=== PATIENT | female | born 2000 | race Caucasian/White ===

== ENCOUNTER 2023-10-13 13:04 | Outpatient (CLI) | payer SELFPAY ==
[2023-10-13 14:07] LABS: HCG,Quantitative 195 mIU/ml (0-5.42)
== END 2023-10-13 23:59 ==
PROVIDERS: Visit Provider Nurse Practitioner Obstetrics & Gynecology
DX: N92.6 Irregular menstruation, unspecified (principal)
CPT/HCPCS: 36415; 84144; 84702

== ENCOUNTER 2023-11-08 09:46 | Outpatient (CLI) | payer MEDICAID, SELFPAY ==
--- NOTE | 2023-11-08 09:46 | US_ITS ---
PROCEDURE: US OB <= 14 WEEKS FETUS CLINICAL INDICATION: for dates COMPARISON: No exams were available for comparison FINDINGS: Transvaginal sonographic images of the pelvis were obtained. From her last menstrual period she is 8weeks 5days. An intrauterine gestational sac is present with a pole with a crown-rump length of 1.37cm This correlates to a gestational age of 7weeks 5days. heart tones are present with an FHR of 155bpm. Yolk sac is noted. The yolk sac measures 4.9mm. There is a small amount of fluid in the lower uterine segment that could represent a subchorionic hemorrhage. The right ovary is seen and appears normal. There are several small follicles. The left ovary is seen and appears normal. There are multiple small follicles. Small septated follicle measuring 1.1 cm. There is trace fluid in the cul-de-sac. IMPRESSION: 1. Viable fetus within the uterine cavity. 2. Fetus measures 7 weeks 5 days and the PATRIZIA should be revised to reflect this discrepancy. The revised PATRIZIA will be June 21, 2024. 3. Both ovaries are seen and appear normal. 4. Trace fluid in the cul-de-sac. Dictated by: Jose Brower MD 11/08/2023 14:57 Jose Brower MD in [facility] 11/08/2023 14:57
== END 2023-11-08 23:59 ==
LOC: RAD 09:46
PROVIDERS: Visit Provider Nurse Practitioner Obstetrics & Gynecology
DX: O26.841 Uterine size-date discrepancy, first trimester (principal); Z3A.08 8 weeks gestation of pregnancy
CPT/HCPCS: 76801

== ENCOUNTER 2023-11-23 11:21 | Outpatient (CLI) | payer MEDICAID, SELFPAY ==
[2023-11-23 11:54] LABS: Basophils # 0.1 K/mm3 (0-0.2); Eosinophils # 0.1 K/mm3 (0.0-0.4); Eosinophils % 1.2 % (0.1-12.0); Hematocrit 42.5 % (37.0-47.0); Hemoglobin 14.4 g/dL (12.2-16.2); Lymphocytes # 2.2 K/mm3 (0.7-4.5); Lymphocytes % 26.7 % (10-50); Mean Corpuscular Hemoglobin 31.6 pg (27.0-31.2); Mean Corpuscular Volume 93.1 fl (81-99); Mean Platelet Volume 8.4 fl (7.4-10.4); Monocytes # 0.4 K/mm3 (0.1-1.0); Monocytes % 4.5 % (1.7-9.3); Neutrophils # 5.4 K/mm3 (1.8-7.8); Neutrophils % 66.5 % (37.0-80.0); Platelet Count 269 K/mm3 (142-424); Red Blood Count 4.57 M/mm3 (4.20-5.40); White Blood Count 8.1 K/mm3 (4.8-10.8)
[2023-11-24 06:37] LABS: HIV Screen 4th Generation wRfx Non Reactive (Non Reactive); Rubella Antibodies, IgG 7.46 index (Immune >0.99)
[2023-11-24 12:13] LABS: Rapid Plasma Reagin Ab Titer Non Reactive titer (NonRea<1:1)
[2023-11-26 09:18] LABS: Hepatitis B Surface Antigen Negative; Hepatitis C Antibody Non Reactive
== END 2023-11-23 23:59 ==
LOC: LAB 11:22
PROVIDERS: PCP Emergency Medicine; Visit Provider Nurse Practitioner Obstetrics & Gynecology
DX: O26.891 Other specified pregnancy related conditions, first trimester (principal); Z3A.09 9 weeks gestation of pregnancy
CPT/HCPCS: 36415; 85025; 86593; 86703; 86762; 86850; 87086; 87340; 87380; G0432

== ENCOUNTER 2024-02-06 12:55 | Outpatient (CLI) | payer MEDICAID, SELFPAY ==
--- NOTE | 2024-02-06 12:57 | US_ITS ---
PROCEDURE: US OB /MATERNAL DETAIL CLINICAL INDICATION: 20 week anatomy scan COMPARISON: US US OB <= 14 WEEKS FETUS from 11/08/2023 FINDINGS: Transabdominal and transvaginal sonographic images of the uterus were obtained. From her established due date she is . Single viable intrauterine gestation. Cephalic position. Placenta: Posteriorplacenta grade 1. Placenta is 2.3-2.7 cm away from the internal cervical os. There is an average amount of fluid. The cervix appears satisfactory. Closed and measuring 3.9 cm in length. Complete survey performed and was unremarkable on the submitted images as in PACS. No discrete anomalies identified on survey imaging by technologist. Active fetus. Three-vessel cord with satisfactory umbilical cord insertion. 4- chamber heart noted. Situs, aortic arch, LVOT, RVOT, appear normal. Survey of brain & ventricles Unremarkable. brain structure was not well visualized due to position. Face and neck survey unremarkable. Profile, nasion, lips and nose appeared normal but not well visualized due to position. Diaphragm and chest views unremarkable. Abdomen: Both kidneys noted and unremarkable. Stomach and bladder noted and satisfactory. Spine: Survey of the spine satisfactory with no anomalies identified nor imaged. Cervical, thoracic, lower spine appear normal. Both arms and legs noted. Amniotic Fluid: Adequate. Measurements: Average ultrasound age 21weeks. Estimated due date by ultrasound age 0906/18/2024. Estimated weight 377g BPD = 21weeks 3days HC = 20weeks 5days AC = 20weeks 3days FL = 21weeks 2days Growth Percentile= 58 Heart Rate = 146bpm Humerus = 20weeks 6days HC/AC is 1.2 FL/BPD is 0.7 FL/AC is 0.23 IMPRESSION: 1. Viable fetus in the cephalic presentation with a posterior placenta grade 1. 2. The fluid is within normal limits. 3. Anatomical scan appears normal although incomplete due to position. Would suggest repeat views of the head, profile and heart in 2-4 weeks. 4. biometry is consistent with the dates. Dictated by: Jose Brower MD 02/06/2024 16:53 Jose Brower MD in [facility] 02/06/2024 16:53
== END 2024-02-06 23:59 | disposition home or self-care (01) ==
LOC: RAD 12:55
PROVIDERS: Visit Provider Nurse Practitioner Obstetrics & Gynecology
DX: Z36.89 Encounter for other specified antenatal screening (principal); Z3A.20 20 weeks gestation of pregnancy
CPT/HCPCS: 76811

== ENCOUNTER 2024-02-23 13:54 | Outpatient (CLI) | payer MEDICAID, SELFPAY ==
--- NOTE | 2024-02-23 13:54 | US_ITS ---
General Adjuster: PROCEDURE: US OB FOLLOW UP CLINICAL INDICATION: Repeat views of baby head-due to position COMPARISON: US US OB /MATERNAL DETAIL from 02/06/2024 FINDINGS: Transabdominal sonographic images of the pelvis were obtained. The following parameters are obtained: From her established due date she is 23weeks 0 days Viable fetus in the cephalic presentation with a posterior placenta grade 1. Placenta appears low lying and measures 1.4 cm from the internal cervical os. The cervix measures 3.49 cm. heart rate: 146bpm bpm. BPD: 22weeks 4days HC: 22weeks 5days Amniotic fluid index: Normal No obvious anomalies evident. heart: Four-chamber view, LVOT, RVOT, three-vessel view appear normal. brain: Thalamus, choroid plexus, cerebellum, cisterna magna appear normal. spine: Cervical, thoracic and lower spine appear normal. profile seen, nasion, bladder, three-vessel cord, four chamber heart appear normal. IMPRESSION: 1. Viable fetus in the cephalic presentation with a posterior placenta grade 1. 2. The placenta is low lying and measures 1.4 cm from the internal os. 3. Fluid is within normal limits. 4. Limited anatomical scan including brain profile, and heart appears normal today. 5. Suggest repeat scan in 4-6 weeks to look at the low-lying placenta. Dictated by: Jose Brower MD 02/24/2024 09:24 Jose Brower MD in [place] 02/24/2024 09:24
== END 2024-02-23 23:59 | disposition home or self-care (01) ==
LOC: RAD 13:54
PROVIDERS: PCP Nurse Practitioner Obstetrics & Gynecology; Visit Provider Nurse Practitioner Obstetrics & Gynecology
DX: Z36.2 Encounter for other antenatal screening follow-up (principal); Z3A.22 22 weeks gestation of pregnancy; Z34.92 Encounter for supervision of normal pregnancy, unspecified, second trimester
CPT/HCPCS: 76816

== ENCOUNTER 2024-03-08 16:08 | Emergency (ER) | payer MEDICAID, SELFPAY ==
[2024-03-08 16:08] VITALS: BP 117/75; PULSE 83; RESP 16; TEMP 36.9; O2SAT 100; BMI 29.7
--- NOTE | 2024-03-08 16:08 | ECG_ITS ---
APPROVED REPORT Exam: Resting ECG HR:80 bpm ECG Measurements Heart Rate 80 AXES IN 135 P 63 QRSd 102 QRS 62 QT 360 T 50 QTc 395 Conclusion SINUS RHYTHM POSSIBLE RIGHT VENTRICULAR CONDUCTION DELAY [RSR (QR) IN V1/V2] BORDERLINE ECG UNCONFIRMED REPORT Electronically signed by : Himanshu Zamarripa, 03/08/2024 23:15:37
[2024-03-08 16:12] VITALS: PULSE 83
[2024-03-08 16:24] LABS: Basophils % 0.4 % (0.1-2.0); Eosinophils # 0.1 K/mm3 (0.0-0.4); Eosinophils % 0.5 % (0.1-12.0); Hematocrit 36.4 % (37.0-47.0); Hemoglobin 12.1 g/dL (12.2-16.2); Lymphocytes # 1.7 K/mm3 (0.7-4.5); Lymphocytes % 16.3 % (10-50); Mean Corpuscular HGB Conc 33.3 g/dL (31.8-35.4); Mean Corpuscular Hemoglobin 31.3 pg (27.0-31.2); Mean Corpuscular Volume 93.9 fl (81-99); Mean Platelet Volume 8.3 fl (7.4-10.4); Monocytes # 0.4 K/mm3 (0.1-1.0); Monocytes % 3.9 % (1.7-9.3); Neutrophils # 8.2 K/mm3 (1.8-7.8); Platelet Count 296 K/mm3 (142-424); Red Blood Count 3.88 M/mm3 (4.20-5.40); Red Cell Distribution Width 13.8 % (11.5-17.5); White Blood Count 10.4 K/mm3 (4.8-10.8)
[2024-03-08 16:27] LABS: Chloride 109 mmol/L (98-107); Sodium 136 mmol/L (136-145)
[2024-03-08 16:28] LABS: Potassium 3.6 mmoL/L (3.5-5.1)
[2024-03-08 16:30] LABS: Alanine Aminotransferase 31 U/L (12-78); Albumin Level 3.7 g/dl (3.5-5.0); Albumin/Globulin Ratio 1.2 (1.1-1.8); Alkaline Phosphatase 84 U/L (38-126); Anion Gap 10.6 mEq/L (5-15); Aspartate Amino Transferase 35 U/L (14-36); Bilirubin,Total 0.2 mg/dl (0.2-1.3); Blood Urea Nitrogen 8 mg/dl (7-17); Carbon Dioxide 20 mmol/L (22.0-30.0); Creatinine Clearance Estimated 203 mL/min (50-200); Estimated Glomerular Filt Rate 123 ml/min (>60); GFR (African American) 149 ML/MIN (>60); Globulin 3.2 g/dL (1.3-3.2); Total Protein,Serum 6.9 g/dl (6.3-8.2)
[2024-03-08 16:31] LABS: Calcium 9.1 mg/dl (8.4-10.2); Glucose 94 mg/dl (74-100)
[2024-03-08] MEDS: BELLADONNA ALKALOIDS 60 ML ML PO (16:40)
[2024-03-08 16:43] LABS: Troponin I < 0.01 ng/ml (0.00-0.034)
[2024-03-08 16:46] LABS: Lipase 96 U/L (23-300)
--- NOTE | 2024-03-08 16:47 | ED_ITS ---
Discharge Plan Disposition Patient Disposition: Home, Self-Care Prescriptions Prescriptions: No Action Classic 28 mg iron- 800 mcg tablet PO DAILY ferrous sulfate 325 mg (65 mg iron) tablet,delayed release (DR/EC) 325 mg PO DAILY Qty: 30 6RF Rx Instructions: take one tablet daily famotidine 20 mg tablet 20 mg PO BID Qty: 60 11RF azithromycin [Zithromax Z-Domingo] 250 mg tablet See Rx Instructions PO .COMPLEX Qty: 6 1RF Rx Instructions: For 250 mg dose pack: take 500 mg today (day 1), then 250 mg for 4 days (days 2-5) PO terconazole 0.8 % cream 1 appful vaginal HS 3 Days Qty: 20 0RF Referrals Follow up/Referrals: Provider,Referral, MD [Primary Care Provider] - See instructions Activity Restrictions/Add. Instructions Additional Instructions/Restrictions: No evidence of acute cardiopulmonary emergency. Your symptoms are consistent with GERD in the setting of . Please continue to take your famotidine. Lifestyle modification as we discussed. Clinical Impressions Clinical Impression: Chest pain due to GERD, Intrauterine Discharge ED Provider: Yue Zamarripa General Adult HPI General Chief complaint: Chest Pain Stated complaint: Chest Pain Time Seen by Provider: 03/08/24 16:21 Mode of Arrival: Ambulatory Source of Information: Patient Limitations: No Limitations Description of Symptoms (Recalled from ER Triage Doc. 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 States has been ongoing intermittently but pretty constant over the last several weeks. States that she has noticed that she has had significant reflux in the past she was started on famotidine and has had significant improvement in the chest discomfort in the past. States this morning that she had a ice cream sandwich also ate [employer]. She has noticed that her pain has been worse at night particularly when lying flat and wakes up in the night with some soreness. Denies any exertional symptoms no shortness of breath or diaphoresis associated with this. No lower extremity swelling no hemoptysis. Fevers or chills etc. Related Data Home Medications Medication Instructions Recorded Confirmed vits no.[id number]-ferrous fum tab PO DAILY 12/02/23 02/20/24 28 mg iron-folic acid 800 mcg tablet (Classic ) Previous Rx's Medication Instructions Recorded ferrous sulfate 325 mg (65 mg 325 mg PO DAILY #30 tabs 01/23/24 iron) tablet,delayed release azithromycin 250 mg tablet See Rx Instructions PO .COMPLEX #6 02/20/24 (Zithromax Z-Domingo) tabs famotidine 20 mg tablet 20 mg PO BID #60 tabs 02/20/24 terconazole 0.8 % vaginal cream 1 appful vaginal HS 3 days #20 02/20/24 grams Allergies Allergy/AdvReac Type Severity Reaction Status Date / Time No Known Allergies Allergy Verified 02/20/24 10:30 [facility] Disclaimer: The information contained in this section may have been updated after the patient was seen, as this information can be updated by other users. Medical History Heartburn during , antepartum Surgical History No significant past surgical history Family History Other No significant family history Social History Smoking Status: Never smoker alcohol intake: never substance use type: denies use current occupational status: employed Travel in the last 8 weeks: Inside the [place] ROS Obtained: Yes All systems reviewed & no additional complaints except as documented Physical Exam General General appearance: alert Respiratory Respiratory exam: Present normal lung sounds bilaterally; Absent respiratory distress Cardiovascular Cardiovascular exam: Present regular rate and normal rhythm Abdominal Exam Abdominal exam: Present soft; Absent distention or tenderness Neurological Exam Neurological exam: Present alert and oriented X3 Medical Decision Making Medical Records Medical records reviewed: Yes I reviewed the patient's medical records. Gen Inquiry Pt receiving controlled substance: No Vital Signs: 03/08/24 16:08 03/08/24 16:12 Temperature 98.5 F Temperature Source Oral Pulse Rate 83 Pulse Rate [Left Radial] 83 Respiratory Rate 16 Blood Pressure [Right Arm] 117/75 Blood Pressure Mean [Right Arm] 89 Blood Pressure Source [Right Arm] Automatic Cuff Blood Pressure Position [Right Arm] Sitting 02 Sat by Pulse Oximetry 100 Oxygen Delivery Method Room Air Lab Data Lab results reviewed: Yes I reviewed the patient's lab results. Lab Results 03/08/24 16:15: WBC 10.4, RBC 3.88 L, Hgb 12.1 L, Hct 36.4 L, MCV 93.9, MCH 31.3 H, MCHC 33.3, RDW 13.8, Plt Count 296, MPV 8.3, Neut % (Auto) 79.0, Lymph % (Auto) 16.3, [place] % (Auto) 3.9, Eos % (Auto) 0.5, Baso % (Auto) 0.4, Neut # (Auto) 8.2 H, Lymph # (Auto) 1.7, [place] # (Auto) 0.4, Eos # (Auto) 0.1, Baso # (Auto) 0.0, Sodium 136, Potassium 3.6, Chloride 109 H, Carbon Dioxide 20 L, Anion Gap 10.6, BUN 8, Creatinine 0.60, Estimated Creat Clear 203, Estimated GFR 123, Est GFR ( Amer) 149, Glucose 94, Calcium 9.1, Total Bilirubin 0.2, AST 35, ALT 31, Alkaline Phosphatase 84, Troponin I < 0.01, Total Protein 6.9, Albumin 3.7, Globulin 3.2, Albumin/Globulin Ratio 1.2, Lipase 96 03/08/24 16:15 03/08/24 16:15 Orders (Tests/Meds): ED MEDICATIONS Discontinued Medications Generic Name Dose Route Start Last Admin Trade Name Freq PRN Reason Stop Dose Admin Belladonna Alkaloids 60 ml 03/08/24 16:34 03/08/24 16:40 Belladonna Alkaloids 60 Ml Ml PO 03/08/24 16:35 60 ml ONCE ONE Administration ORDERS Category Date Time Status POCUS Point of Care (ER Only) Stat Exams 03/08/24 16:35 Ordered Complete Blood Count Auto Diff Stat Lab 03/08/24 16:15 Completed Comprehensive Metabolic Panel Stat Lab 03/08/24 16:15 Completed Lipase Stat Lab 03/08/24 16:15 Completed Troponin I Q3H Lab 03/08/24 19:15 Ordered Troponin I Q3H Lab 03/08/24 22:15 Ordered Troponin I Stat Lab 03/08/24 16:15 Completed HEART Score History (anamnesis): Slightly suspicious ECG: Normal Age: <45 years Risk factors: No known risk factors Troponin: </= normal limit HEART Score: 0 Medical Decision Narrative: Very well-appearing 23-year-old female presents today with above history. This is consistent with GERD worsening with food and particularly spicy foods laying down flat at night and had been improved with famotidine. Patient had complete and almost immediate resolution of her symptoms after GI cocktail further supporting a diagnosis. EKG was unremarkable from an ischemia standpoint troponin negative. She is PERC negative I do not suspect a pulmonary embolism. She has been advised to have lifestyle modifications to continue her famotidine and follow-up with primary care doctor. Limited bedside ultrasound of her baby was normal. Patient was discharged in improved and stable condition. Procedures Miscellaneous Procedure Procedure Performed: Limited OB ultrasound Indication: Chest pain in Identified structures: [-Uterus -Left adnexa -Right adnexa -Pouch of Harshad] Findings: Uterus: Definitive IUP FHR: 145 Right adnexa: No free fluid Left adnexa: No free fluid Cul de sac: No free fluid Impression: -IUP: Present - heart rate: Normal -Ectopic : Absent -Free fluid: Absent Images were saved to permanent archive The study was technically adequate CPT Transabdominal: 73414-49 This study was performed by me, and I personally interpreted all images/videos. Based on my clinical judgement, these images were adequate and did not necessitate further imaging. Critical Care Critical Care Time Critical Care Time: No
[2024-03-08 16:58] VITALS: BP 116/78; PULSE 62; RESP 16; TEMP 36.9; O2SAT 99
== END 2024-03-08 16:59 | disposition home or self-care (01) ==
PROVIDERS: Emergency Provider Student in an Organized Health Care Education/Training Program
DX: O26.892 Other specified pregnancy related conditions, second trimester (principal); R07.89 Other chest pain; K21.9 Gastro-esophageal reflux disease without esophagitis; Z3A.27 27 weeks gestation of pregnancy
CPT/HCPCS: 80053; 83690; 84484; 85025; 93005; 99284

== ENCOUNTER 2024-03-28 08:09 | Outpatient (CLI) | payer MEDICAID, SELFPAY ==
[2024-03-28 09:16] LABS: Basophils % 0.4 % (0.1-2.0); Eosinophils % 0.3 % (0.1-12.0); Hematocrit 35.9 % (37.0-47.0); Hemoglobin 11.9 g/dL (12.2-16.2); Lymphocytes # 1.8 K/mm3 (0.7-4.5); Lymphocytes % 21.8 % (10-50); Mean Corpuscular HGB Conc 33.3 g/dL (31.8-35.4); Mean Corpuscular Hemoglobin 31.7 pg (27.0-31.2); Mean Corpuscular Volume 95.4 fl (81-99); Mean Platelet Volume 8.5 fl (7.4-10.4); Monocytes # 0.4 K/mm3 (0.1-1.0); Monocytes % 4.5 % (1.7-9.3); Neutrophils # 6.2 K/mm3 (1.8-7.8); Platelet Count 245 K/mm3 (142-424); Red Blood Count 3.76 M/mm3 (4.20-5.40); Red Cell Distribution Width 13.7 % (11.5-17.5); White Blood Count 8.4 K/mm3 (4.8-10.8)
[2024-03-28 09:46] LABS: Glucose,Fasting 80 mg/dl (74-100)
[2024-03-28 11:08] LABS: Glucose 1 Hour 113 mg/dL (74-100)
== END 2024-03-28 23:59 | disposition home or self-care (01) ==
PROVIDERS: Visit Provider Nurse Practitioner Obstetrics & Gynecology
DX: Z34.90 Encounter for supervision of normal pregnancy, unspecified, unspecified trimester (principal); Z3A.26 26 weeks gestation of pregnancy
CPT/HCPCS: 36415; 82951; 85025

== ENCOUNTER 2024-04-02 12:46 | Outpatient (CLI) | payer MEDICAID, SELFPAY ==
--- NOTE | 2024-04-02 12:46 | US_ITS ---
PROCEDURE: US OB FOLLOW UP CLINICAL INDICATION: evaluate low lying placenta COMPARISON: US US OB /MATERNAL DETAIL from 02/06/2024 US US OB FOLLOW UP from 02/23/2024 FINDINGS: Transabdominal sonographic images of the pelvis were obtained. The following parameters are obtained: From her established due date she is 28weeks 4days Viable fetus in the cephalic presentation with a posterior placenta grade 2. The placenta continues to be low lying and measures 1.54-1.86 cm from the internal cervical os. The cervix measures 3.45 cm. heart rate: 142bpm bpm. BPD: 29weeks 3days, 66 percent HC: 30weeks 1day, 63 percentile AC: 30weeks 0 days, 83 percentile FL: 29weeks 5day, 68 percent s HC/AC: 1.06 FL/BPD: 0.77 FL/AC: 0.22 Growth percentile: 83 Amniotic fluid index: 8.2cm, MVP 2.73 cm. No obvious anomalies evident. profile seen, stomach, bladder, kidneys, three-vessel cord, four chamber heart appear normal. IMPRESSION: 1. Viable fetus in the cephalic presentation with a posterior placenta grade 2. 2. The placenta continues to be low lying and measures 1.54-1.86 cm from the internal cervical os. 3. The fluid is within normal limits with an amniotic fluid index of 8.2 cm, MVP 2.73 cm. 4. There has been good interval growth with the fetus currently 83rd percentile. 5. Limited anatomical scan appears normal. 6. Suggest repeat scan in 6 weeks to look at the position of the placenta. Dictated by: Jose Brower MD 04/02/2024 15:30 Jose Brower MD in [place] 04/02/2024 15:30
== END 2024-04-02 23:59 | disposition home or self-care (01) ==
LOC: RAD 12:46
PROVIDERS: PCP Nurse Practitioner Obstetrics & Gynecology; Visit Provider Nurse Practitioner Obstetrics & Gynecology
DX: O44.43 Low lying placenta NOS or without hemorrhage, third trimester (principal); Z3A.28 28 weeks gestation of pregnancy
CPT/HCPCS: 76816

== ENCOUNTER 2024-05-16 18:51 | Outpatient (CLI) | payer MEDICAID, SELFPAY ==
[2024-05-16 19:00] VITALS: BMI 31.8
[2024-05-16 19:20] LABS: Appearance,Urine CLEAR (Clear); Bilirubin,Urine Negative (Negative); Blood, Urine Negative (Negative); Color,Urine YELLOW (Yellow); Glucose,Urine (UA) Negative (Negative); Ketones,Urine Negative (Negative); Leukocyte Esterase,Urine TRACE (Negative); Microscopic, Urine URINE MICROSCOPIC (MICROSCOPIC); Nitrate,Urine Negative (Negative); Protein,Urine Negative (Negative); Specific Gravity, Urine 1.015 (1.005-1.030); Urobilinogen,Urine 0.2 EU/dl (0.2)
[2024-05-16 19:35] LABS: Bacteria,Urine 4+ /lpf; Squamous Epithelial Cell,Urine 20-50 #/hpf (0-5); WBC,Urine 20-50 #/hpf (0-3)
[2024-05-16 19:48] VITALS: BP 120/73; PULSE 87; RESP 17; TEMP 36.7; O2SAT 97; BMI 31.8
[2024-05-16 19:55] LABS: Benzodiazepines Screen,Urine Negative ng/ml (<200)
[2024-05-16 19:56] LABS: Amphetamine/Metha Screen,Urine Negative ng/ml (<1000); Barbiturates Screen,Urine Negative ng/ml (<200)
[2024-05-16 19:57] LABS: Methadone Screen,Urine Negative ng/ml (<300)
[2024-05-16 19:58] LABS: Cannabinoid Screen,Urine Negative ng/ml (<50); Cocaine Screen,Urine Negative ng/ml (<300)
[2024-05-16 20:01] LABS: Opiate Screen,Urine Negative ng/ml (<300)
[2024-05-16 20:02] LABS: Phencyclidine Screen,Urine Negative ng/ml (<25)
== END 2024-05-16 20:03 | disposition home or self-care (01) ==
LOC: OBOUT 18:54 → OB 18:54
PROVIDERS: Visit Provider Obstetrics & Gynecology
DX: O36.8130 Decreased fetal movements, third trimester, not applicable or unspecified (principal); Z3A.34 34 weeks gestation of pregnancy
CPT/HCPCS: 80307; 81001; 87086; G0463

== ENCOUNTER 2024-05-23 13:45 | Outpatient (CLI) | payer MEDICAID, SELFPAY ==
--- NOTE | 2024-05-23 13:50 | US_ITS ---
PROCEDURE: US OB BIOPHYSICAL PROFILE CLINICAL INDICATION: Low Lying Placenta-Possible Transvaginal US COMPARISON: US US OB /MATERNAL DETAIL from 02/06/2024 US US OB FOLLOW UP from 02/23/2024 FINDINGS: Transabdominal sonographic images of the uterus were obtained. From her established due date she is 35weeks 6days. The following parameters are obtained: Viable Fetus in the cephalic presentation with a posterior placenta grade 2. The placenta is 3.37 cm from the internal cervical os transvaginal. Average ultrasound age is 36weeks 6days Estimated weight 2,878g, 6 lb 6 oz The cervix measures 3.31 cm transvaginally. Measurements: heart Rate = 149bpm BPD = 38weeks 0 days, 96 percentile HC = 37weeks 1day, 48 percentile AC = 36weeks 0 days, 61 percentile FL = 35weeks 6days, 43 percentile HC/AC is 1.02 FL/BPD is 0.75 FL/AC is 0.22 61 percentile Amniotic fluid index: 8.57cm, MVP 3.22 cm. Qualitative AFV:2 Breathing movements: 2 Gross Body Movements: 2 Tone: 2 Biophysical profile score: 8 No obvious anomalies evident.Kidneys, bladder, stomach, four-chamber heart, three-vessel cord appear normal. IMPRESSION: 1. Viable fetus in the cephalic presentation with a posterior placenta grade 2. 2. The previously described low lying placenta has now resolved and the placenta is 3.37 cm from the internal cervical os. 3. The fluid is within normal limits with an amniotic fluid index of 8.57 cm, MVP 3.22 cm. 4. Biophysical profile is 8/8 with good breathing movement and movement seen. 5. There has been good interval growth with the fetus currently 61st percentile. Dictated by: Jose Brower MD 05/23/2024 16:05 Jose Brower MD in [place] 05/23/2024 16:05
== END 2024-05-23 23:59 | disposition home or self-care (01) ==
LOC: RAD 13:47
PROVIDERS: Visit Provider Nurse Practitioner Obstetrics & Gynecology
DX: O44.43 Low lying placenta NOS or without hemorrhage, third trimester (principal)
CPT/HCPCS: 76816; 76819

== ENCOUNTER 2024-05-29 15:42 | Outpatient (CLI) | payer MEDICAID, SELFPAY | END 2024-05-29 23:59 | disposition home or self-care (01) | LOC: LAB.DROPOF 15:42 | PROVIDERS: PCP Obstetrics & Gynecology; Visit Provider Obstetrics & Gynecology | DX: K80.40 Calculus of bile duct with cholecystitis, unspecified, without obstruction (principal) | CPT/HCPCS: 86403 ==

== ENCOUNTER 2024-05-31 11:40 | Inpatient (IN) | payer MEDICAID, SELFPAY ==
[2024-05-31] VITALS (7 sets, daily range): BP systolic 113–129; BP diastolic 73–91; PULSE 66–83; RESP 16–20; TEMP 36.4–36.8; O2SAT 97–100; BMI 32.1
[2024-05-31 11:51] LABS: Microscopic, Urine URINE MICROSCOPIC (MICROSCOPIC)
--- NOTE | 2024-05-31 11:57 | ECG_ITS ---
APPROVED REPORT Exam: Resting ECG HR:82 bpm ECG Measurements Heart Rate 82 AXES ME 116 P 57 QRSd 88 QRS 56 QT 357 T 51 QTc 396 Conclusion SINUS RHYTHM WITH SHORT ME INTERVAL POSSIBLE RIGHT VENTRICULAR CONDUCTION DELAY [RSR (QR) IN V1/V2] BORDERLINE ECG Electronically signed by : THEODORE EVANGELISTA, 05/31/2024 17:03:41
[2024-05-31 12:05] LABS: Basophils % 0.4 % (0.1-2.0); Eosinophils % 0.4 % (0.1-12.0); Lymphocytes # 1.1 K/mm3 (0.7-4.5); Lymphocytes % 12.9 % (10-50); Mean Corpuscular HGB Conc 32.4 g/dL (31.8-35.4); Mean Corpuscular Hemoglobin 30.3 pg (27.0-31.2); Mean Corpuscular Volume 93.3 fl (81-99); Mean Platelet Volume 9.8 fl (7.4-10.4); Monocytes # 0.3 K/mm3 (0.1-1.0); Monocytes % 3.9 % (1.7-9.3); Neutrophils # 6.7 K/mm3 (1.8-7.8); Neutrophils % 82.4 % (37.0-80.0); Platelet Count 286 K/mm3 (142-424); Red Blood Count 4.29 M/mm3 (4.20-5.40); Red Cell Distribution Width 13.7 % (11.5-17.5); White Blood Count 8.2 K/mm3 (4.8-10.8)
[2024-05-31 12:06] LABS: Appearance,Urine CLEAR (Clear); Blood, Urine Negative (Negative); Color,Urine AMBER (Yellow); Glucose,Urine (UA) Negative (Negative); Ketones,Urine 2+ (Negative); Leukocyte Esterase,Urine TRACE (Negative); Nitrate,Urine Negative (Negative); Protein,Urine 1+ (Negative); Specific Gravity, Urine >= 1.030 (1.005-1.030)
[2024-05-31 12:10] LABS: Bilirubin,Urine 2+ (Negative)
[2024-05-31 12:18] LABS: Alanine Aminotransferase 85 U/L (12-78); Albumin Level 3.5 g/dl (3.5-5.0); Alkaline Phosphatase 232 U/L (38-126); Anion Gap 8.9 mEq/L (5-15); Aspartate Amino Transferase 159 U/L (14-36); Bilirubin,Total 1.7 mg/dl (0.2-1.3); Blood Urea Nitrogen 6 mg/dl (7-17); Carbon Dioxide 22 mmol/L (22.0-30.0); Chloride 109 mmol/L (98-107); Creatinine Clearance Estimated 262 mL/min (50-200); Estimated Glomerular Filt Rate 152 ml/min (>60); GFR (African American) 183 ML/MIN (>60); Globulin 3.5 g/dL (1.3-3.2); Glucose 87 mg/dl (74-100); Potassium 3.9 mmoL/L (3.5-5.1); Sodium 136 mmol/L (136-145)
[2024-05-31] MEDS: ONDANSETRON 4MG/2ML VIAL 4 MG IV (12:30)
[2024-05-31] MEDS: FAMOTIDINE 20MG/2ML VIAL 20 MG IV (12:30)
[2024-05-31] MEDS: MAGIC MOUTHWASH 300ML BOTTLE 15 ML PO (12:30)
[2024-05-31 12:37] LABS: Bacteria,Urine 1+ /lpf
[2024-05-31 12:38] LABS: Lipase 78 U/L (23-300)
--- NOTE | 2024-05-31 12:42 | US_ITS ---
FINAL REPORT CLINICAL HISTORY: RUQ pain/nausea/transamintis, COMPARISON: None FINDINGS: Sonographic images of the right upper quadrant were obtained. The pancreas is partially obscured. Multiple gallstones are noted in the gallbladder, with mild gallbladder wall thickening, the gallbladder wall measuring 4 mm in thickness. There is also prominence of the intrahepatic bile ducts, suspect mild biliary ductal dilatation. The common duct measures 4mm. Limited images of the right kidney are unremarkable. IMPRESSION: Multiple gallstones are present in the gallbladder, with mild gallbladder wall thickening and mild intrahepatic biliary ductal dilatation. Cholecystitis is not excluded. Would suggest MRCP or ERCP to evaluate degree dilatation. Pancreas not well-visualized secondary to overlying bowel gas. Reviewed, Interpreted and Dictated by Solomon Downs III, MD Transcribed by Sallie Hawk Authenticated and [facility]
--- NOTE | 2024-05-31 12:43 | ED_ITS ---
Discharge Plan Disposition Patient Disposition: Admitted Prescriptions Prescriptions: No Action Classic 28 mg iron- 800 mcg tablet PO DAILY ferrous sulfate 325 mg (65 mg iron) tablet,delayed release (DR/EC) 325 mg PO DAILY Qty: 30 6RF Rx Instructions: take one tablet daily pantoprazole [Protonix] 40 mg tablet,delayed release (DR/EC) 40 mg PO DAILY Qty: 30 2RF Referrals Follow up/Referrals: Provider,Referral, MD [Primary Care Provider] - See instructions Clinical Impressions Clinical Impression: Gallstone of bile duct with obstruction, and not yet delivered Print Language Print Language: Niuean Discharge ED Provider: Samira Luque General Adult HPI General Chief complaint: PAIN Stated complaint: heartburn Time Seen by Provider: 05/31/24 11:44 Mode of Arrival: Ambulatory Source of Information: Patient Limitations: No Limitations Description of Symptoms (Recalled from ER Triage Doc. by RN): heartburn History of Present Illness HPI narrative: This patient is a 23-year-old female who is currently 37 weeks presenting to the emergency department for evaluation concern for heartburn. She states that it started last night after eating dinner. She notes that she had some right shoulder pain this morning but no other acute concerns. No fevers, chills, vomiting, changes in bowel movements, or other concerns. She states she wanted come in for a GI cocktail because she got 1 in the past and it helped. She has not tried taking her Pepcid at home. Related Data Home Medications ?Medication ?Instructions ?Recorded ?Confirmed vits no.126-ferrous fum tab PO DAILY 12/02/23 05/29/24 28 mg iron-folic acid 800 mcg tablet (Classic ) Previous Rx's ?Medication ?Instructions ?Recorded ferrous sulfate 325 mg (65 mg 325 mg PO DAILY #30 tabs 01/23/24 iron) tablet,delayed release pantoprazole 40 mg tablet,delayed 40 mg PO DAILY #30 tabs 05/31/24 release (Protonix) Allergies Allergy/AdvReac Type Severity Reaction Status Date / Time No Known Allergies Allergy Verified 05/29/24 12:57 [facility] Disclaimer: The information contained in this section may have been updated after the patient was seen, as this information can be updated by other users. Medical History Heartburn during , antepartum Surgical History No significant past surgical history Family History Other No significant family history Social History Smoking Status: Never smoker alcohol intake: never substance use type: denies use current occupational status: employed Travel in the last 8 weeks: None ROS Obtained: Yes All systems reviewed & no additional complaints except as documented Physical Exam General General appearance: alert and in no apparent distress Head Head exam: atraumatic and normocephalic Eye Eye exam: Present normal appearance, PERRL and EOMI ENT ENT exam: Present normal exam, normal oropharynx, mucous membranes moist and normal external ear exam Neck Neck exam: Present normal inspection, full ROM and trachea midline; Absent tenderness Chest Chest inspection: Present normal inspection and symmetric chest wall rise; Absent tenderness Respiratory Respiratory exam: Present normal lung sounds bilaterally; Absent respiratory distress, wheezes, stridor or accessory muscle use Cardiovascular Cardiovascular exam: Present regular rate and normal rhythm Abdominal Exam Abdominal exam: Present soft; Absent distention, tenderness or guarding Extremities Exam Extremities exam: Present normal inspection, full ROM and normal capillary refill; Absent tenderness or edema Back Exam Back exam: Present normal inspection and full ROM; Absent tenderness Neurological Exam Neurological exam: Present alert, oriented X3, CN II-XII intact and normal gait; Absent motor sensory deficit Psychiatric Psychiatric exam: Present normal affect and normal mood Skin Skin exam: Present warm and dry Medical Decision Making Medical Records Medical records reviewed: Yes I reviewed the patient's medical records. Gen Inquiry Pt receiving controlled substance: No Vital Signs: 05/31/24 11:41 05/31/24 12:30 Temperature 97.9 F Temperature Source Oral Pulse Rate 77 Pulse Rate [Right] 83 Respiratory Rate 18 Blood Pressure 124/83 Blood Pressure [Right Arm] 124/85 Blood Pressure Mean 89 Blood Pressure Mean [Right Arm] 98 02 Sat by Pulse Oximetry 100 98 Lab Data Lab results reviewed: Yes I reviewed the patient's lab results. Lab Results 05/31/24 11:44: Urine Color Samira, Urine Appearance Clear, Urine pH 6.0, Ur Specific [place] >= 1.030, Urine Protein 1+ A, Urine Glucose (UA) Negative, Urine Ketones 2+, Urine Blood Negative, Urine Nitrate Negative, Urine Bilirubin 2+ A, Urine Urobilinogen 1.0, Ur Leukocyte Esterase Trace, Urine RBC None, Urine WBC 3-5, Ur Squamous Epith Cells 10-20, Urine Bacteria 1+ 05/31/24 11:55: WBC 8.2, RBC 4.29, Hgb 13.0, Hct 40.0, MCV 93.3, MCH 30.3, MCHC 32.4, RDW 13.7, Plt Count 286, MPV 9.8, Neut % (Auto) 82.4 H, Lymph % (Auto) 12.9, [place] % (Auto) 3.9, Eos % (Auto) 0.4, Baso % (Auto) 0.4, Neut # (Auto) 6.7, Lymph # (Auto) 1.1, [place] # (Auto) 0.3, Eos # (Auto) 0.0, Baso # (Auto) 0.0, Sodium 136, Potassium 3.9, Chloride 109 H, Carbon Dioxide 22, Anion Gap 8.9, BUN 6 L, Creatinine 0.50 L, Estimated Creat Clear 262, Estimated GFR 152, Est GFR ( Amer) 183, Glucose 87, Calcium 9.0, Total Bilirubin 1.7 H, AST 159 H, A LT 85 H, Alkaline Phosphatase 232 H, Total Protein 7.0, Albumin 3.5, Globulin 3.5 H, Albumin/Globulin Ratio 1.0 L, Lipase 78 05/31/24 11:55 05/31/24 11:55 Orders (Tests/Meds): ED MEDICATIONS Generic Name Dose Route Start Last Admin Trade Name Freq PRN Reason Stop Dose Admin Sodium Chloride 10 ml 05/31/24 11:57 Sodium Chloride 0.9% 10ml Flush Syringe IV 06/30/24 11:56 NEEDED PRN Maintain IV Site Sodium Chloride 8 ml 05/31/24 12:08 Sodium Chloride 0.9% 10ml Vial IV 06/30/24 12:07 NEEDED PRN dilute pepcid Discontinued Medications Generic Name Dose Route Start Last Admin Trade Name Freq PRN Reason Stop Dose Admin Famotidine 20 mg 05/31/24 12:08 05/31/24 12:30 Famotidine 20mg/2ml Vial IV 09/12/24 12:09 20 mg ONCE ONE Administration Ondansetron HCl 4 mg 05/31/24 12:08 05/31/24 12:30 Ondansetron 4mg/2ml Vial IV 05/31/24 12:09 4 mg ONCE ONE Administration Tetracycl/Hydrocort/Nystatin/Diphen 15 ml 05/31/24 12:08 05/31/24 12:30 Magic Mouthwash 300ml Bottle PO 05/31/24 12:09 15 ml ONCE ONE Administration ORDERS Category Date Time Status US RUQ [US abdomen limited] Stat Exams 05/31/24 12:42 Taken Complete Blood Count Auto Diff Stat Lab 05/31/24 11:55 Completed Comprehensive Metabolic Panel Stat Lab 05/31/24 11:55 Completed Lipase Stat Lab 05/31/24 11:55 Completed UA [Urinalysis and Microscopic] Stat Lab 05/31/24 11:44 Completed ECG Data Tracing #1: I reviewed this ECG and interpreted as documented below: Normal sinus rhythm with a ventricular rate of [address] changes concerning for ischemia. Normal axis and intervals. ECG initial impression date: 05/31/24 ECG initial impression time: 11:58 Medical Decision Narrative: In summary, this patient is a 23-year-old female presenting to the Emergency Department for evaluation of heartburn and right shoulder pain. Differential diagnoses considered include but are not limited to GERD, cholecystitis, gallstone, pancreatitis, HELLP, preeclampsia. Ruling out the most morbid conditions drove assessment. I reviewed patient's past medical records and noted previous OB notes with reassuring course thus far. On exam, patient is sitting upright in no acute distress with reassuring vital signs and cardiac telemetry. She is not hypertensive. workup included CBC, CMP, lipase, urinalysis. Urine demonstrates positive bilirubin, and labs demonstrate new transaminitis with hyperbilirubinemia. Lipase and WBC count normal. no fever, and she is stable. Given the right shoulder pain in combination with the labs, right upper quadrant ultrasound was ordered. I independently interpreted ultrasound prior to the radiologist read and noted gallstones with concern for biliary obstruction. Please see their read for final interpretation. I called and had an interactive discussion with Dr. Trejo who the patient follows with and most recently saw 2 days ago. She advised that she would reach out to [facility] at to determine whether or not the patient would require emergent transfer for further evaluation and management or if it would be safer to deliver her here and then have her follow-up with GI afterward if needed. I advised we don't have GI so patient would need transfer for biliary outflow obstruction secondary to cholelithiasis. She advised that after speaking with [facility], they stated the delivery would be the best option and then follow-up for gallbladder issues later. Dr. Trejo advises that if patient needs inpatient to inpatient transfer afterward, she would facilitate this. Patient notified of plan and agreeable. Ultimately admitted to L&D in stable condition. Critical Care Critical Care Time Critical Care Time: No
--- NOTE | 2024-05-31 13:24 | PC.NURSE ---
PT RETURNED FROM US
--- NOTE | 2024-05-31 13:28 | PC.NURSE ---
DR EVANGELISTA AT BEDSIDE TO UPDATE PT AND FAMILY IMAGES POWERSHARED TO [facility]
--- NOTE | 2024-05-31 14:31 | PC.NURSE ---
called [facility] and requested a bed on labor and delivery, pt is being admitted to dr patricio for cholelithiasis, pt is 37 weeks
--- NOTE | 2024-05-31 14:50 | PC.NURSE ---
called report to glenis tejeda on 2nd floor on ob
[2024-05-31] MEDS: miSOPROStol 100MCG TABLET 25 MCG VG ×2 (16:09→21:28)
--- NOTE | 2024-05-31 16:58 | EXP.HP ---
History of Present Illness *Admission Date: 05/31/24 *Reason for visit:: Induction *History of present illness: Sydnie Miles is a 23yo at 37weeks 0days who presented to the ED for RUQ pain. She was diagnosed with cholelithiasis with a possible choledocholithiasis. Pt reports she has intermittent RUQ and the most recent episode started last night. She denies emesis. On arrival pt endorses good FM, denies CTX, VB, LOF. A+, antibody negative, rubella immune, hepatitis B negative, hepatitis C negative, RPR negative, HIV negative 1 hour GTT: 113 GBS pending Reviewed ultrasound on 05/23. Low-lying placenta resolved. EFW: 2870 g, 6 pound 6 ounces, 61st percentile. Of note BPD was in the 96 percentile. [facility] Disclaimer: The information contained in this section may have been updated after the patient was seen, as this information can be updated by other users. Medical History Heartburn during , antepartum Surgical History No significant past surgical history Family History Other No significant family history Social History Smoking Status: Never smoker alcohol intake: never substance use type: denies use current occupational status: employed Travel in the last 8 weeks: None Review of Systems Review of Systems Review of systems (narrative): Review of Systems Constitutional: Denies fever, chills, and sweats Eyes: Denies vision change/ pain Respiratory: Denies cough and shortness of breath Cardiovascular: Denies chest pain and lightheadedness Gastrointestinal: Admits abdominal pain, specifically RUQ. Denies nausea, vomiting. Genitourinary: Denies dysuria and incontinence Musculoskeletal: Endorses shoulder pain and back pain Neurological: Denies change in speech or headaches Meds Home Medications and Allergies Home Medications ?Medication ?Instructions ?Recorded ?Confirmed ?Type vits no.126-ferrous fum 1 tab PO DAILY 12/02/23 05/31/24 History 28 mg iron-folic acid 800 mcg tablet (Classic ) ferrous sulfate 325 mg (65 mg 325 mg PO DAILY #30 tabs 01/23/24 05/31/24 Rx iron) tablet,delayed release pantoprazole 40 mg tablet,delayed 40 mg PO DAILY #30 tabs 05/31/24 05/31/24 Rx release (Protonix) New Prescriptions to Start Prescriptions: Allergies Allergy/AdvReac Type Severity Reaction Status Date / Time No Known Allergies Allergy Verified 05/29/24 12:57 Exam Data for Last 24 hours Vital signs and Labs for Last 24 Hours: Temp Pulse Resp BP Pulse Ox O2 Del Method 98.2 F 66 16 126/82 100 Room Air 05/31/24 15:15 05/31/24 15:15 05/31/24 15:15 05/31/24 15:15 05/31/24 15:15 05/31/24 15:15 Laboratory Results - last 24 hr 05/31/24 11:44: Urine Color Samira, Urine Appearance Clear, Urine pH 6.0, Ur Specific [place] >= 1.030, Urine Protein 1+ A, Urine Glucose (UA) Negative, Urine Ketones 2+, Urine Blood Negative, Urine Nitrate Negative, Urine Bilirubin 2+ A, Urine Urobilinogen 1.0, Ur Leukocyte Esterase Trace, Urine RBC None, Urine WBC 3-5, Ur Squamous Epith Cells 10-20, Urine Bacteria 1+ 05/31/24 11:55: WBC 8.2, RBC 4.29, Hgb 13.0, Hct 40.0, MCV 93.3, MCH 30.3, MCHC 32.4, RDW 13.7, Plt Count 286, MPV 9.8, Neut % (Auto) 82.4 H, Lymph % (Auto) 12.9, [place] % (Auto) 3.9, Eos % (Auto) 0.4, Baso % (Auto) 0.4, Neut # (Auto) 6.7, Lymph # (Auto) 1.1, [place] # (Auto) 0.3, Eos # (Auto) 0.0, Baso # (Auto) 0.0, Sodium 136, Potassium 3.9, Chloride 109 H, Carbon Dioxide 22, Anion Gap 8.9, BUN 6 L, Creatinine 0.50 L, Estimated Creat Clear 262, Estimated GFR 152, Est GFR ( Amer) 183, Glucose 87, Calcium 9.0, Total Bilirubin 1.7 H, AST 159 H, ALT 85 H, Alkaline Phosphatase 232 H, Total Protein 7.0, Albumin 3.5, Globulin 3.5 H, Albumin/Globulin Ratio 1.0 L, Lipase 78 05/31/24 15:41: Blood Type A Positive, Antibody Screen Negative I & O for Last 24 hours: Intake & Output 05/28/24 05/29/24 05/30/24 05/31/24 23:59 23:59 23:59 23:59 Weight 211 lb Narrative: General: patient is alert oriented in no acute distress and responds appropriately to questions. HEENT: NCAT, EOMI, moist mucous membranes, neck supple with full ROM Cardiovascular: RRR +S1/S2, no murmurs or rubs Pulmonary: Clear to auscultation bilaterally, nonlabored breathing, symmetric chest rise Abdominal: Gravid abdomen appropriate for gestation. No guarding, rebound, or significant tenderness noted. Mild tenderness in the RUQ Extremities: trace edema, no tenderness or cyanosis noted Skin: Normal turgor, intact, warm. Negative for erythema, pallor, petechia, or lesions Neurologic: Negative for sensory or motor deficit Psychiatric: Normal affect, normal thought process, good judgment and insight, no depression or anxious mood appreciated. *Routine HEENT Exam Head: Present normocephalic and atraumatic Eye: Present EOMI, PERRL and normal accommodation; Absent conjunctival icterus, scleral injection, nystagmus or exophthalmos ENT: Present mucous membranes moist *Routine Respiratory Exam Respiratory: Present CTA bilaterally, normal respiratory effort, able to speak in complete sentences and symmetric chest movement; Absent accessory muscle use, decreased breath sounds, rales, respiratory distress, wheezes, distant breath sounds or diminished air movement *Routine Cardiovascular Exam Cardiovascular: Present RRR, Normal S1 and Normal S2; Absent murmur or gallop *Routine Abdominal Exam Abdominal: Present soft, normoactive bowel sounds and tenderness (RUQ); Absent distended, rebound or guarding *Routine Rectal Exam Rectal:: deferred *Routine Genitalia Exam Genitalia:: normal female Assessment and Plan *Assessment and plan (1) and not yet delivered: Status: Acute Qualifiers: Trimester: third trimester Qualified Code(s): Z34.93 - Encounter for supervision of normal , unspecified, third trimester Category: Medical Code(s): Z34.90 - Encounter for supervision of normal , unspecified, unspecified trimester (2) Gallstone of bile duct with gallbladder inflammation: Status: Acute Qualifiers: Cholecystitis acuity: acute and chronic Category: Medical Code(s): K80.40 - Calculus of bile duct with cholecystitis, unspecified, without obstruction (3) Encounter for induction of labor: Status: Acute Category: Medical Code(s): Z34.90 - Encounter for supervision of normal , unspecified, unspecified trimester Plan - Monitor vitals - Admit to L&D for induction of labor - Plan for induction with 25mcg of vaginal cytotec [id number] per protocol - External FHR and TOCO monitor - Exam on admission: /-2 - GBS pending/ Blood type: A+ - Hemoglobin: 13.0, Plt: 286 - Plan for epidural anesthesia if patient desires - Anticipate vaginal delivery of male infant: [place]. Reviewed Low risk genetic screening. #Gallbladder disease of #Cholelithiasis -Initiated Ampicillin sulbactam 3g [id number]. -Billirubin: 1.7 -AST/ALT: 159/85 -Called radiology who states we offer MRCP. Will plan to order tomorrow or based on patients symptoms in the morning. -I consulted Dr. Victoria at [facility] who recommended delivery here with follow up as indicated -Repeat CBC and CMP in the morning -NPO diet -Consider consult general surgery in the morning or tonight if pt worsens. -vitals signs stable, continue monitoring. I reviewed the plan of care with the patient extensively. I discussed the risks and benefits of induction. I discussed the indications of induction. I reviewed that cervical ripening was required and that this may be a prolonged process, >48hours. I discussed the possibility of transfer of her or the infant. Pt and sister voiced understanding. We discussed the possibility of FHR abnormalities and the resuscitation that may occur. I discussed the risks of delivery. Pt and support person voiced understanding. Induction process initiated.
[2024-05-31 19:00] LABS: Amphetamine/Metha Screen,Urine Negative ng/ml (<1000); Barbiturates Screen,Urine Negative ng/ml (<200)
[2024-05-31 19:01] LABS: Benzodiazepines Screen,Urine Negative ng/ml (<200)
[2024-05-31 19:02] LABS: Cannabinoid Screen,Urine Negative ng/ml (<50)
[2024-05-31 19:03] LABS: Cocaine Screen,Urine Negative ng/ml (<300); Methadone Screen,Urine Negative ng/ml (<300)
[2024-05-31 19:04] LABS: Opiate Screen,Urine Negative ng/ml (<300)
[2024-05-31 19:05] LABS: Phencyclidine Screen,Urine Negative ng/ml (<25)
[2024-05-31] MEDS: AMPICILLIN/SULBACTAM 3 GM in 0.9 % SODIUM CHLORIDE 100 ML IV (23:05)
[2024-06-01] MEDS: miSOPROStol 100MCG TABLET 25 MCG VG (02:01)
[2024-06-01 03:48] VITALS: BP 107/58; PULSE 69; RESP 18; TEMP 36.6
[2024-06-01] MEDS: AMPICILLIN/SULBACTAM 3 GM in 0.9 % SODIUM CHLORIDE 100 ML IV ×4 (04:59→23:37)
[2024-06-01] MEDS: miSOPROStol 100MCG TABLET 50 MCG PO (06:01)
[2024-06-01 06:35] LABS: Basophils % 0.4 % (0.1-2.0); Eosinophils % 0.2 % (0.1-12.0); Hematocrit 37.8 % (37.0-47.0); Lymphocytes # 1.5 K/mm3 (0.7-4.5); Lymphocytes % 15.4 % (10-50); Mean Corpuscular HGB Conc 31.7 g/dL (31.8-35.4); Mean Corpuscular Hemoglobin 29.7 pg (27.0-31.2); Mean Corpuscular Volume 93.6 fl (81-99); Mean Platelet Volume 9.6 fl (7.4-10.4); Monocytes # 0.4 K/mm3 (0.1-1.0); Platelet Count 257 K/mm3 (142-424); Red Blood Count 4.04 M/mm3 (4.20-5.40); Red Cell Distribution Width 13.8 % (11.5-17.5)
[2024-06-01 06:43] LABS: Alanine Aminotransferase 84 U/L (12-78); Albumin Level 3.1 g/dl (3.5-5.0); Alkaline Phosphatase 234 U/L (38-126); Anion Gap 8.3 mEq/L (5-15); Aspartate Amino Transferase 104 U/L (14-36); Bilirubin,Total 0.6 mg/dl (0.2-1.3); Blood Urea Nitrogen 5 mg/dl (7-17); Calcium 8.6 mg/dl (8.4-10.2); Carbon Dioxide 21 mmol/L (22.0-30.0); Chloride 110 mmol/L (98-107); Creatinine Clearance Estimated 262 mL/min (50-200); Estimated Glomerular Filt Rate 152 ml/min (>60); GFR (African American) 183 ML/MIN (>60); Globulin 3.1 g/dL (1.3-3.2); Glucose 86 mg/dl (74-100); Potassium 3.3 mmoL/L (3.5-5.1); Sodium 136 mmol/L (136-145); Total Protein,Serum 6.2 g/dl (6.3-8.2)
--- NOTE | 2024-06-01 08:43 | EXP.LABOR.NO ---
Labor Note Subjective: Date: 06/01/24 Time: 08:43 irregular contractions Objective: NST:: Reactive Cervical Dilation:: 1 Effacement:: 80% Station: -3 Membranes: artificially ruptured (amniotomy performed at 0812 with am[place]ook without difficulty. Clear fluid noted) Fetus: Monitoring?: Yes monitoring type:: External Problems: (1) Encounter for induction of labor: Category: Medical Code(s): Z34.90 - Encounter for supervision of normal , unspecified, unspecified trimester (2) 37 weeks gestation of : Category: Medical Code(s): Z3A.37 - 37 weeks gestation of (3) Gallstone of bile duct with gallbladder inflammation: Qualifiers: Cholecystitis acuity: acute and chronic Category: Medical Code(s): K80.40 - Calculus of bile duct with cholecystitis, unspecified, without obstruction (4) Gallstone of bile duct with obstruction: Category: Medical Code(s): K80.51 - Calculus of bile duct without cholangitis or cholecystitis with obstruction Plan: Continue to monitor?: Yes
[2024-06-01] MEDS: BUTORPHANOL TARTRATE 1 MG/ML VIAL IV (08:58)
[2024-06-01] MEDS: LACTATED RINGERS 1000ML 1,000 ML 999 ML IV (10:00)
[2024-06-01] MEDS: ONDANSETRON 4MG/2ML VIAL 4 MG IV (10:30)
[2024-06-01] MEDS: OXYTOCIN/RINGERS LACTATE 30 UNITS/500 ML BAG IV (12:20)
--- NOTE | 2024-06-01 12:48 | EXP.ANES.CKL ---
[facility] Disclaimer: The information contained in this section may have been updated after the patient was seen, as this information can be updated by other users. Medical History (Updated 06/01/24 @ 08:46 by Deisy Gamble DO) 37 weeks gestation of Heartburn during , antepartum Surgical History No significant past surgical history Family History Other No significant family history Social History (Updated 05/31/24 @ 17:10 by Arlene Bacon RN) Smoking Status: Never smoker alcohol intake: never substance use type: denies use current occupational status: employed Travel in the last 8 weeks: None [facility] Anesthesia Checklist Patient Identification Patient Identification: Verbal (Name & ) Structural Data Admitted From: Inpatient Planned Operative Procedure/s: labor epidural Consent for Planned Operative Procedure(s) Verified: Yes Airway Assessment Mallampati Score:: Class II C-Spine Mobility Assessed: Yes TMJ Mobility Assessed: Yes Dentition: Good Dentition Neurological Assessment Level of Consciousness: Awake, Alert and Appropriate Anesthesia Plan Anesthesia Risk discussed: Yes Anesthesia Plan: Verified ASA Class: III Anesthesia Type: Epidural
[2024-06-01] MEDS: METOCLOPRAMIDE HCL 10MG/2ML VIAL 10 MG IVP (13:53)
[2024-06-01] MEDS: DEXTROSE 5%-LACTATED RINGERS 1,000 ML 125 ML IV (16:00)
[2024-06-01] MEDS: OXYTOCIN/RINGERS LACTATE 30 UNITS/500 ML BAG 999 UNITS IV (17:45)
--- NOTE | 2024-06-01 17:53 | EXP.DN ---
Delivery Note Delivery Date:: 06/01/24 Delivery Time:: 17:42 Anesthesia Type: Epidural Was labor medically induced?: Yes Induction method: per misoprostol protocol Gestational age (weeks): 37 Infant delivered prior to 39 weeks?: Yes Justification for early elective delivery:: Biliary Disorder (Cholelithiasis, possible choledocholithiasis) Infant Gender: Male at 1 minute: 8 at 5 minutes: 8 Delivery Procedure:: Mom complete with epidural. Pushed for approximately 30 minutes. Head delivered spontaneously over intact perineum in OA position. Nuchal cord x 1 easily reduced. Anterior shoulder delivered with gentle downward pressure. Posterior shoulder and remainder of body delivered spontaneously. Baby placed on maternal abdomen, mouth and nares bulb suctioned, warmed/dried and stimulated. Delayed cord clamping was performed for 60 seconds. Cord was clamped and cut by father of baby. Cord blood was obtained. Placenta delivered spontaneously and intact. Periurethral abrasions were hemostatic. Mom and baby were skin to skin and doing well after delivery. Live male baby (baby's name is Danny) APGARs 8 (1 min), 8 (5 min) EBL 100 mL Placental Delivery Description: Spontaneous
[2024-06-01 20:57] VITALS: BP 126/70; PULSE 73; RESP 16; TEMP 37.1; O2SAT 100
[2024-06-01] MEDS: BENZOCAINE-MENTHOL SPRAY 56GM CAN TP (21:33)
[2024-06-01] MEDS: WITCH HAZEL 40 PADS/BOX 1 EACH TP (21:33)
[2024-06-01] MEDS: IBUPROFEN 400 MG TABLET 800 MG PO (21:33)
[2024-06-02] MEDS: ACETAMINOPHEN 500MG TAB 1000 MG PO ×2 (00:54→13:52)
[2024-06-02 04:45] VITALS: BP 103/62; PULSE 60; RESP 17; TEMP 36.7; O2SAT 100
[2024-06-02] MEDS: AMPICILLIN/SULBACTAM 3 GM in 0.9 % SODIUM CHLORIDE 100 ML IV (04:56)
[2024-06-02 07:24] LABS: Basophils % 0.3 % (0.1-2.0); Eosinophils % 0.3 % (0.1-12.0); Hematocrit 33.4 % (37.0-47.0); Hemoglobin 10.9 g/dL (12.2-16.2); Lymphocytes # 2.1 K/mm3 (0.7-4.5); Lymphocytes % 17.6 % (10-50); Mean Corpuscular HGB Conc 32.7 g/dL (31.8-35.4); Mean Corpuscular Hemoglobin 30.6 pg (27.0-31.2); Mean Corpuscular Volume 93.7 fl (81-99); Mean Platelet Volume 9.9 fl (7.4-10.4); Monocytes # 0.6 K/mm3 (0.1-1.0); Monocytes % 5.3 % (1.7-9.3); Neutrophils # 9.1 K/mm3 (1.8-7.8); Neutrophils % 76.6 % (37.0-80.0); Platelet Count 230 K/mm3 (142-424); Red Blood Count 3.57 M/mm3 (4.20-5.40); White Blood Count 11.9 K/mm3 (4.8-10.8)
[2024-06-02 07:26] LABS: Alanine Aminotransferase 48 U/L (12-78); Albumin Level 2.6 g/dl (3.5-5.0); Albumin/Globulin Ratio 0.9 (1.1-1.8); Aspartate Amino Transferase 52 U/L (14-36); Blood Urea Nitrogen 7 mg/dl (7-17); Carbon Dioxide 24 mmol/L (22.0-30.0); Chloride 110 mmol/L (98-107); Creatinine Clearance Estimated 218 mL/min (50-200); Estimated Glomerular Filt Rate 123 ml/min (>60); GFR (African American) 149 ML/MIN (>60); Globulin 2.8 g/dL (1.3-3.2); Total Protein,Serum 5.4 g/dl (6.3-8.2)
[2024-06-02 07:28] LABS: Alkaline Phosphatase 178 U/L (38-126); Anion Gap 5.1 mEq/L (5-15); Bilirubin,Total 0.4 mg/dl (0.2-1.3); Calcium 8.2 mg/dl (8.4-10.2); Glucose 82 mg/dl (74-100); Potassium 3.1 mmoL/L (3.5-5.1); Sodium 136 mmol/L (136-145)
[2024-06-02 08:30] VITALS: BP 108/57; PULSE 70; RESP 20; TEMP 36.9; O2SAT 100
[2024-06-02] MEDS: PANTOPRAZOLE 40MG TABLET 40 MG PO (09:13)
--- NOTE | 2024-06-02 12:30 | EXP.ACUTE.PN ---
Subjective *Date: 06/02/24 *Time: 12:30 Interval history: PPD # 1 s/p Feeling well. Pain controlled. Formula feeding. Lochia is appropriate. Voiding without difficulty and passing flatus. Tolerating regular diet. Denies fever/chills, chest pain and shortness of breath. No headaches, vision changes, lightheadedness/dizziness. No lower extremity swelling. Ambulating well ad jane. Medical Exam Vital signs and Labs for Last 24 Hours: Vital Signs Temp Pulse Resp BP Pulse Ox O2 Del Method 06/02/24 08:30 98.4 F 70 20 108/57 L 100 Room Air 06/02/24 04:45 98.0 F 60 17 103/62 L 100 Room Air 06/01/24 20:57 98.8 F 73 16 126/70 100 Room Air Laboratory Results - last 24 hr 06/02/24 06:08: WBC 11.9 H, RBC 3.57 L, Hgb 10.9 L, Hct 33.4 L, MCV 93.7, MCH 30.6, MCHC 32.7, RDW 14.0, Plt Count 230, MPV 9.9, Neut % (Auto) 76.6, Lymph % (Auto) 17.6, [place] % (Auto) 5.3, Eos % (Auto) 0.3, Baso % (Auto) 0.3, Neut # (Auto) 9.1 H, Lymph # (Auto) 2.1, [place] # (Auto) 0.6, Eos # (Auto) 0.0, Baso # (Auto) 0.0, Sodium 136, Potassium 3.1 L, Chloride 110 H, Carbon Dioxide 24, Anion Gap 5.1, BUN 7 D, Creatinine 0.60, Estimated Creat Clear 218, Estimated GFR 123, Est GFR ( Amer) 149, Glucose 82, Calcium 8.2 L, Total Bilirubin 0.4, AST 52 H D, ALT 48 D, Alkaline Phosphatase 178 H, Total Protein 5.4 L, Albumin 2.6 L D, Globulin 2.8, Albumin/Globulin Ratio 0.9 L I & O for Labs for Last 24 Hours: Intake & Output 05/30/24 05/31/24 06/01/24 06/02/24 23:59 23:59 23:59 23:59 Weight 211 lb Head: Present atraumatic and normocephalic ENT: Present normal exam Neck: Present normal inspection and full ROM Respiratory: Present CTA bilaterally and normal respiratory effort Cardiac: Present Reg Rate and Rhythm GI: Present soft and normal bowel sounds; Absent distention or tenderness Comments:: Uterine fundus firm and below umbilicus Rectal (female): Present deferred (female): Present deferred Extremities: Present full ROM; Absent edema or calf tenderness Neuro: Present alert, awake and moves all extremities Assessment and Plan *Assessment and plan (1) Status post normal vaginal delivery: Status: Acute Category: Medical (2) 37 weeks gestation of : Status: Acute Category: Medical Code(s): Z3A.37 - 37 weeks gestation of (3) Gallstone of bile duct with gallbladder inflammation: Status: Acute Qualifiers: Cholecystitis acuity: acute and chronic Category: Medical Code(s): K80.40 - Calculus of bile duct with cholecystitis, unspecified, without obstruction (4) Acute blood loss anemia: Status: Acute Category: Medical Code(s): D62 - Acute posthemorrhagic anemia Plan Continue routine care Feeling well AM Hgb 10.9 (12.0) Plan d/c home tomorrow, PPD # 2
[2024-06-02 13:38] LABS: Rapid Plasma Reagin Ab Titer Non Reactive titer (NonRea<1:1)
[2024-06-02] MEDS: SENNA 8.6MG TABLET 8.6 MG PO (13:52)
[2024-06-02] MEDS: IBUPROFEN 400 MG TABLET 800 MG PO ×2 (13:53→22:21)
[2024-06-02 20:08] VITALS: BP 110/68; PULSE 65; RESP 18; TEMP 36.9; O2SAT 100
[2024-06-03 04:30] VITALS: BP 105/67; PULSE 59; RESP 17; TEMP 36.5; O2SAT 99
[2024-06-03 07:53] LABS: Basophils % 0.4 % (0.1-2.0); Eosinophils # 0.1 K/mm3 (0.0-0.4); Hematocrit 30.9 % (37.0-47.0); Hemoglobin 10.1 g/dL (12.2-16.2); Lymphocytes # 1.8 K/mm3 (0.7-4.5); Lymphocytes % 24.2 % (10-50); Mean Corpuscular HGB Conc 32.8 g/dL (31.8-35.4); Mean Corpuscular Hemoglobin 31.2 pg (27.0-31.2); Mean Platelet Volume 9.4 fl (7.4-10.4); Monocytes # 0.3 K/mm3 (0.1-1.0); Monocytes % 4.6 % (1.7-9.3); Neutrophils # 5.1 K/mm3 (1.8-7.8); Neutrophils % 69.8 % (37.0-80.0); Platelet Count 197 K/mm3 (142-424); Red Blood Count 3.25 M/mm3 (4.20-5.40); White Blood Count 7.4 K/mm3 (4.8-10.8)
--- NOTE | 2024-06-03 09:05 | EXP.DC.SUM ---
General Admission date:: 05/31/24 Discharge date: 06/03/24 HPI HPI HPI: Sydnie Miles is a 23yo at 37weeks 0days who presented to the ED for RUQ pain. She was diagnosed with cholelithiasis with a possible choledocholithiasis. Pt reports she has intermittent RUQ and the most recent episode started last night. She denies emesis. On arrival pt endorses good FM, denies CTX, VB, LOF. A+, antibody negative, rubella immune, hepatitis B negative, hepatitis C negative, RPR negative, HIV negative 1 hour GTT: 113 GBS pending Reviewed ultrasound on 05/23. Low-lying placenta resolved. EFW: 2870 g, 6 pound 6 ounces, 61st percentile. Of note BPD was in the 96 percentile. Hospital Course Hospital Course Hospital Course: Sydnie Miles is a 23 yo PPD#2 from an at 37w1d gestation secondary to syptomatic cholelithiasis. Following delivery pain improved as well as labs. The patient will be scheduled for MRCP early this week. She will follow up with me in the office on Tuesday and we will coordinate care for her to see a general surgeon. Discussed gen surg consult while inpatient and pt declines states her pain is better controlled at this time. She states she will RTC if persistent pain return. Pt will remain on a bland diet until that time. Her lochia is scant and her pain is well controlled. She does endorse a decreased appetite but denies nausea or vomiting with PO intake. Circumcision completed this morning. Pt is bottle feeding. Pt will DC home this afternoon. Routine discharge instructions reviewed with the patient and support person in detail and both voiced understanding. Printed instructions will also be provided. Exam Data for Last 24 hours Vital signs and Labs for Last 24 Hours: Temp Pulse Resp BP Pulse Ox O2 Del Method 97.7 F 59 L 17 105/67 L 99 Room Air 06/03/24 04:30 06/03/24 04:30 06/03/24 04:30 06/03/24 04:30 06/03/24 04:30 06/03/24 04:30 Laboratory Results - last 24 hr 05/31/24 15:41: RPR Titer Non reactive 06/03/24 06:53: WBC 7.4 D, RBC 3.25 L, Hgb 10.1 L, Hct 30.9 L, MCV 95.0, MCH 31.2, MCHC 32.8, RDW 14.0, Plt Count 197, MPV 9.4, Neut % (Auto) 69.8, Lymph % (Auto) 24.2, [place] % (Auto) 4.6, Eos % (Auto) 1.0, Baso % (Auto) 0.4, Neut # (Auto) 5.1, Lymph # (Auto) 1.8, [place] # (Auto) 0.3, Eos # (Auto) 0.1, Baso # (Auto) 0.0 I & O for Last 24 hours: Intake & Output 05/31/24 06/01/24 06/02/24 06/03/24 23:59 23:59 23:59 23:59 Weight 211 lb Narrative: General: patient is alert oriented in no acute distress and responds appropriately to questions. Appears to be in minimal pain. Walking around the room and finished a shower HEENT: NCAT, EOMI, moist mucous membranes, neck supple with full ROM Cardiovascular: RRR +S1/S2, no murmurs or rubs Pulmonary: Clear to auscultation bilaterally, nonlabored breathing, symmetric chest rise Abdominal: Fundus below the umbilicus, firm, and tenderness appropriate for the period. Tenderness in the RUQ is absent. Pt denies RUQ pain with PO intake. Extremities: trace edema, no tenderness or cyanosis noted Skin: Normal turgor, intact, warm. Negative for erythema, pallor, petechia, or lesions Neurologic: Negative for sensory or motor deficit Psychiatric: Normal affect, normal thought process, good judgment and insight, no depression or anxious mood appreciated. Results Data Completed and Pending Labs on day of discharge: Labs from last 24 hours 06/03/24 05/31/24 06:53 15:41 WBC 7.4 D RBC 3.25 L Hgb 10.1 L Hct 30.9 L MCV 95.0 MCH 31.2 MCHC 32.8 RDW 14.0 Plt Count 197 MPV 9.4 Neut % (Auto) 69.8 Lymph % (Auto) 24.2 [place] % (Auto) 4.6 Eos % (Auto) 1.0 Baso % (Auto) 0.4 Neut # (Auto) 5.1 Lymph # (Auto) 1.8 [place] # (Auto) 0.3 Eos # (Auto) 0.1 Baso # (Auto) 0.0 RPR Titer Non reactive DS: Diagnosis Discharge Diagnosis (1) Status post normal vaginal delivery: Status: Acute (2) 37 weeks gestation of : Status: Acute Code(s): Z3A.37 - 37 weeks gestation of (3) Gallstone of bile duct with gallbladder inflammation: Status: Acute Code(s): K80.40 - Calculus of bile duct with cholecystitis, unspecified, without obstruction Qualifiers: Cholecystitis acuity: acute and chronic (4) Acute blood loss anemia: Status: Acute Code(s): D62 - Acute posthemorrhagic anemia Meds Home Medications and Allergies Home Medications ?Medication ?Instructions ?Recorded ?Confirmed ?Type vits no.126-ferrous fum 1 tab PO DAILY 12/02/23 05/31/24 History 28 mg iron-folic acid 800 mcg tablet (Classic ) ferrous sulfate 325 mg (65 mg 325 mg PO DAILY #30 tabs 01/23/24 05/31/24 Rx iron) tablet,delayed release acetaminophen 500 mg tablet 500 mg PO Q6H PRN fever or pain 06/03/24 Rx #30 tabs ibuprofen 800 mg tablet 800 mg PO Q8H PRN pain #60 tabs 06/03/24 Rx pantoprazole 40 mg tablet,delayed 40 mg PO DAILY #30 tabs 06/03/24 Rx release (Protonix) sennosides 8.6 mg tablet (Senna 8.6 mg PO BIDP PRN Constipation 06/03/24 Rx Lax) #60 tabs New Prescriptions to Start Prescriptions: acetaminophen Cyn Trejo ibuprofen Cyn Trejo pantoprazole [Protonix] Cyn Trejo sennosides [Senna Lax] Cyn Trejo Allergies Allergy/AdvReac Type Severity Reaction Status Date / Time No Known Allergies Allergy Verified 05/29/24 12:57 Discharge Plan Disposition Patient Disposition: Home, Self-Care Discharge Order Discharge Orders: Discharge Order (Routine); Ordered 06/03/24 Ordered By: Cyn Trejo Follow up Plan Follow up with: Cyn Trejo DO [Staff Physician] - 06/05/24 Jose Brower MD [Staff Physician] - 06/15/24 (Call the office on tuesday to setup an appointment for 2weeks from delivery.) Prescriptions/Medication Reconciliation: New sennosides [Senna Lax] 8.6 mg Tablet 8.6 mg PO BIDP PRN (Reason: Constipation) Qty: 60 2RF ibuprofen 800 mg tablet 800 mg PO Q8H PRN (Reason: pain) Qty: 60 2RF acetaminophen 500 mg tablet 500 mg PO Q6H PRN (Reason: fever or pain) Qty: 30 3RF Continued Classic 28 mg iron- 800 mcg tablet 1 tab PO DAILY ferrous sulfate 325 mg (65 mg iron) tablet,delayed release (DR/EC) 325 mg PO DAILY Qty: 30 6RF Rx Instructions: take one tablet daily pantoprazole [Protonix] 40 mg tablet,delayed release (DR/EC) 40 mg PO DAILY Qty: 30 2RF Problem Reconciliation Problems Reviewed?: Yes Patient Discharge Instructions ACTIVITY: Continue current activity DIET: regular diet Additional Instructions: Congratulations on the delivery of your sweet baby boy. It is my privilege to be a part of your SERVER SECURITY ADMINISTRATOR team. I will see you on Tuesday and we will discuss follow-up care for your cholelithiasis (gallstones). Discharge: -Take 800 mg Ibuprofen every 8 hours as needed for pain. You can also take 500-1000 mg of Tylenol in between doses, every 6-8 hours. -Colace can be taken 1-2 times per day as you need to soften your stool. Make sure to drink at least 8 cups of water per day. -Iron supplements can make you constipated. You can take iron tablets every other day if constipation is too bad. -Nothing in the vagina for 6 weeks - no intercourse, douching, tampons. No tub baths or swimming pools. -Do not lift greater than 20pounds for 2 weeks, this is the equivalent of 2 gallons of milk. -Reasons to return to L&D or call On-Call doctor - fever (greater than 100.4) - heavy vaginal bleeding (soaking through 1 pad in less than 2 hours or passing clots that are egg sized) - vaginal discharge (malodorous and/or purulent) - severe headaches, leg tenderness/edema, or any other symptoms that warrant immediate medical attention. depression/blues - Normal to feel anxious/overwhelmed for first 2 weeks - Talk to your doctor if: anxiety lasts over 2 weeks, trouble bonding with baby, withdrawing from other family members, thoughts of harming yourself or others Cyn Trejo DO [facility] [phone] *Nothing in the Vagina for 6 weeks* *No strenuous activity* *No heavy lifting* *No tub baths until okay's by MD* Patient Instructions: Depression, Hemorrhage, DI for Labor and Delivery, Vaginal , DI for Pre-eclampsia, H Post Discharge Instructions Print Language: [place] Providers Primary Care Provider: Provider,Referral Admit Provider: Cyn Trejo Attending Provider: Cyn Trejo
[2024-06-03 09:24] LABS: Alanine Aminotransferase 35 U/L (12-78); Alkaline Phosphatase 146 U/L (38-126); Aspartate Amino Transferase 34 U/L (14-36); Bilirubin,Total 0.3 mg/dl (0.2-1.3); Blood Urea Nitrogen 7 mg/dl (7-17); Calcium 8.2 mg/dl (8.4-10.2); Chloride 112 mmol/L (98-107); Creatinine Clearance Estimated 218 mL/min (50-200); Estimated Glomerular Filt Rate 123 ml/min (>60); GFR (African American) 149 ML/MIN (>60); Glucose 66 mg/dl (74-100); Sodium 137 mmol/L (136-145)
[2024-06-03 09:25] LABS: Albumin Level 2.5 g/dl (3.5-5.0); Carbon Dioxide 23 mmol/L (22.0-30.0); Globulin 2.5 g/dL (1.3-3.2)
[2024-06-03 09:47] LABS: Anion Gap 5.4 mEq/L (5-15); Potassium 3.4 mmoL/L (3.5-5.1)
[2024-06-03] MEDS: PANTOPRAZOLE 40MG TABLET 40 MG PO (10:44)
== END 2024-06-03 13:00 | disposition home or self-care (01) | DRG 806 ==
LOC: ER 13:52 → OB 14:40
PROVIDERS: Obstetrics & Gynecology; Admitting Provider Obstetrics & Gynecology; Emergency Provider Emergency Medicine; Visit Provider Obstetrics & Gynecology
DX: O99.62 Diseases of the digestive system complicating childbirth; K80.46 Calculus of bile duct with acute and chronic cholecystitis without obstruction; Z37.0 Single live birth; O69.81X0 Labor and delivery complicated by cord around neck, without compression, not applicable or unspecified; Z3A.37 37 weeks gestation of pregnancy
CPT/HCPCS: 36415; 59025; 76705; 80053; 80307; 81001; 83690; 85025; 86403; 86593; 86850; 93005; 94761; 99285; G0283; J0295; J0595; J2405; J2765; J3010; J7120; S0028

== ENCOUNTER 2024-06-07 07:12 | Outpatient (CLI) | payer MEDICAID, SELFPAY | END 2024-06-07 23:59 | disposition home or self-care (01) | LOC: RAD 07:12 | PROVIDERS: Visit Provider Obstetrics & Gynecology | DX: K80.20 Calculus of gallbladder without cholecystitis without obstruction (principal) ==

== ENCOUNTER 2024-06-08 10:19 | Outpatient (CLI) | payer MEDICAID, SELFPAY ==
[2024-06-08 11:07] LABS: Albumin Level 3.5 g/dl (3.5-5.0)
[2024-06-08 11:09] LABS: Bilirubin,Unconjugated 0.3 mg/dL (0.0-1.1)
[2024-06-08 11:10] LABS: Alanine Aminotransferase 27 U/L (12-78); Alkaline Phosphatase 128 U/L (38-126); Aspartate Amino Transferase 27 U/L (14-36); Bilirubin,Direct 0.2 mg/dl (0.0-0.4); Bilirubin,Indirect 0.3 mg/dL (0.0-0.9); Bilirubin,Total 0.5 mg/dl (0.2-1.3); Total Protein,Serum 6.2 g/dl (6.3-8.2)
== END 2024-06-08 23:59 | disposition home or self-care (01) ==
LOC: LAB 10:20
PROVIDERS: Visit Provider Surgery
DX: K80.40 Calculus of bile duct with cholecystitis, unspecified, without obstruction (principal)
CPT/HCPCS: 36415; 80076

== ENCOUNTER 2024-06-15 10:46 | Outpatient (CLI) | payer MEDICAID, SELFPAY ==
[2024-06-15 12:03] LABS: HCG Qualitative, Serum Negative (Negative)
== END 2024-06-15 23:59 | disposition home or self-care (01) ==
LOC: PREOP 10:46
PROVIDERS: Nurse Anesthetist, Certified Registered; Visit Provider Surgery
DX: Z01.812 Encounter for preprocedural laboratory examination (principal); K80.20 Calculus of gallbladder without cholecystitis without obstruction
CPT/HCPCS: 84703

== ENCOUNTER 2024-06-21 08:03 | Day surgery (SDC) | payer MEDICAID, SELFPAY ==
[2024-06-15 10:54] VITALS: BMI 30.1
[2024-06-15 12:03] LABS: HCG Qualitative, Serum Negative (Negative)
[2024-06-21] VITALS (10 sets, daily range): BP systolic 123–152; BP diastolic 73–96; PULSE 53–73; RESP 16–18; TEMP 36.1–36.9; O2SAT 97–100
[2024-06-21] MEDS: LACTATED RINGERS 1000ML 1,000 ML 25 ML IV (08:21)
--- NOTE | 2024-06-21 08:35 | P.PNANES_ITS ---
[facility] Disclaimer: The information contained in this section may have been updated after the patient was seen, as this information can be updated by other users. Medical History Acute blood loss anemia Status post normal vaginal delivery Heartburn during , antepartum Surgical History History of wisdom tooth extraction Family History Other Family history of cancer Social History Smoking Status: Never smoker alcohol intake: never substance use type: denies use current occupational status: employed Travel in the last 8 weeks: None [facility] Anesthesia Checklist Patient Identification Patient Identification: Verbal (Name & ) Structural Data Admitted From: Home Planned Operative Procedure/s: lap janine Consent for Planned Operative Procedure(s) Verified: Yes NPO Status Verified Time NPO: 00:00 Additional verifications Anesthesia Reactions: No Hx Blood Transfusions: No Airway Assessment Mallampati Score:: Class II C-Spine Mobility Assessed: Yes TMJ Mobility Assessed: Yes Dentition: Good Dentition Neurological Assessment Level of Consciousness: Awake, Alert and Appropriate Anesthesia Plan Anesthesia Risk discussed: Yes Anesthesia Plan: Verified ASA Class: II Anesthesia Type: General
[2024-06-21 08:47] LABS: HCG Qualitative, Serum Negative (Negative)
[2024-06-21] MEDS: LIDOCAINE 1% 20ML MDV 20 ML (09:25)
[2024-06-21] MEDS: CEFAZOLIN SODIUM 2 GM in 0.9 % SODIUM CHLORIDE 100 ML IV (09:25)
--- NOTE | 2024-06-21 10:18 | P.OP_ITS ---
Date of procedure: 06/21/24 Pre-op Diagnosis:: Chronic calculus cholecystitis Post-op Diagnosis:: Same Procedure performed:: Laparoscopic cholecystectomy Surgeon:: Avery Carrera MD MANAGER [employer]CIAL SERVICES:: Ismael Wiggins Anesthesia: GETJenifer Estimated blood loss (mL): 15 Operative findings:: Severe pericholecystic fat stranding with chronic adhesions to stomach, small bowel, and colon Severe soft tissue thickening and/around infundibulum Impacted stone within infundibulum Dome down approach utilized secondary to above findings Operative note:: After informed consent was obtained, the patient was taken to the operating room and placed in the supine position. General anesthesia was induced and the abdomen was prepped and draped in a sterile fashion. After infiltration with local anesthetic an infraumbilical incision was made. A Veress needle was placed in position. The abdomen was insufflated. A 5 mm optical trocar was placed in position. Under direct visualization, a 12 mm trocar was placed in the subxiphoid position and 2 additional 5 mm trocars were placed in the right upper quadrant. The gallbladder was elevated up and over the liver margin. Severe pericholecystic fat stranding with chronic adhesions to stomach, small bowel, and colon were noted. Careful blunt dissection was utilized to free these adhesions. No obvious injury to the above-status structures was noted. The tissue around the infundibulum/cystic duct was carefully dissected.'s severe soft tissue thickening was noted. An impacted stone within the infundibulum was noted. Secondary to these findings a dome down approach was chosen. A window was made with harmonic shalonda posterior to the infundibulum. Harmonic shalonda were then utilized to dissect the gallbladder away from the liver margin. Endoloops (x 2) were placed along the infundibulum/cystic duct margin. Harmonic shalonda were then utilized to transect the infundibulum and the gallbladder was placed in a retrieval bag before being removed through the subxiphoid trocar site. The right upper quadrant was thoroughly irrigated. No active bleeding or bile leak was noted. Fascia at the subxiphoid trocar site was reapproximated utilizing 0 Ethibond. The remaining trocars were removed. All wounds were irrigated and skin was closed with 4-0 Monocryl in a subcuticular fashion. Steri-Strips were applied. The patient's anesthetic agents were reversed and extubation was completed prior to transfer to recovery in stable condition. Condition: stable Disposition: PACU Specimens:: Gallbladder Complications:: No immediate
--- NOTE | 2024-06-21 10:25 | P.PNANES_ITS ---
[facility] Anesthesia Record Part I Anesthesia Record I Intake, IV Amount: 1,300 Hydration: Adequate Estimated blood loss (mL): 10 Urine output (mL): 0 Blood Pressure: 152/96 SaO2: 100 Pulse Rate: 69 Airway Patency: Patent Respiratory Rate: 16 Temperature: 98.2 F Patient is:: Drowsy and Stable Stable to PACU at:: 10:25
[2024-06-21] MEDS: ONDANSETRON 4MG/2ML VIAL 4 MG IV (10:46)
--- NOTE | 2024-06-21 12:01 | EXP.ANES.II ---
[facility] Anesthesia Record Part II Anesthesia Record Part II Discharge Time: 10:55 Destination: Surgical Day Care (OP Surgery) PACU nurse assessment reviewed?: Yes Patient Condition:: Good Anesthesia Complications:: None Swallowing reflex intact?: Yes Airway Patency: Patent Cyanosis?: No Blood Pressure: 141/91 SaO2: 100 Respiratory Rate: 16 Pulse Rate: 56 Temperature: 97 F Mental Status: Alert & Oriented Pain level:: 4 Nausea and/or vomitting:: None Intake, IV Amount: 0 Hydration: Adequate
== END 2024-06-21 11:31 | disposition home or self-care (01) ==
PROVIDERS: Nurse Anesthetist, Certified Registered; Visit Provider Surgery
PROC: 0FT44ZZ Resection of Gallbladder, Percutaneous Endoscopic Approach (ICD-10-PCS; CPT 47562; principal; 2024-06-21 09:30)
DX: R10.13 Epigastric pain (principal); R10.11 Right upper quadrant pain; K80.10 Calculus of gallbladder with chronic cholecystitis without obstruction
CPT/HCPCS: 47562; 84703; 96374; J3490; J0690; J1100; J1885; J2250; J2405; J3010; J7120

== ENCOUNTER 2024-12-05 09:51 | Outpatient (CLI) | payer MEDICAID, SELFPAY ==
[2024-12-05 10:53] LABS: Potassium 4.2 mmoL/L (3.5-5.1); Sodium 138 mmol/L (136-145)
[2024-12-05 10:56] LABS: Alanine Aminotransferase 41 U/L (12-78); Alkaline Phosphatase 101 U/L (38-126); Amylase 52 U/L (30-110); Aspartate Amino Transferase 29 U/L (14-36); Bilirubin,Total 0.5 mg/dl (0.2-1.3); Blood Urea Nitrogen 11 mg/dl (7-17); Calcium 9.1 mg/dl (8.4-10.2); Carbon Dioxide 24 mmol/L (22.0-30.0); Estimated Glomerular Filt Rate 102 ml/min (>60); GFR (African American) 123 ML/MIN (>60); Glucose 88 mg/dl (74-100); Lipase 90 U/L (23-300)
[2024-12-05 11:27] LABS: Albumin Level 4.5 g/dl (3.5-5.0); Albumin/Globulin Ratio 1.8 (1.1-1.8); Anion Gap 11.2 mEq/L (5-15); Chloride 107 mmol/L (98-107); Globulin 2.5 g/dL (1.3-3.2)
[2024-12-05 13:04] LABS: Hematocrit 42.1 % (37.0-47.0); Hemoglobin 14.4 g/dL (12.2-16.2); Mean Corpuscular Hemoglobin 29.4 pg (27.0-31.2); Mean Corpuscular Volume 85.9 fl (81-99); White Blood Count 8.1 K/mm3 (4.8-10.8)
[2024-12-05 13:05] LABS: Basophils % 0.4 % (0.1-2.0); Eosinophils % 0.6 % (0.1-12.0); Lymphocytes # 1.6 K/mm3 (0.7-4.5); Lymphocytes % 19.8 % (10-50); Mean Corpuscular HGB Conc 34.2 g/dL (31.8-35.4); Mean Platelet Volume 10.3 fl (7.4-10.4); Monocytes % 4.9 % (1.7-9.3); Neutrophils % 74.1 % (37.0-80.0); Platelet Count 341 K/mm3 (142-424); Red Cell Distribution Width 12.8 % (11.5-17.5)
[2024-12-05 13:06] LABS: Eosinophils # 0.1 K/mm3 (0.0-0.4); Monocytes # 0.4 K/mm3 (0.1-1.0)
== END 2024-12-05 23:59 | disposition home or self-care (01) ==
LOC: LAB 09:52
PROVIDERS: Visit Provider Surgery
DX: K83.8 Other specified diseases of biliary tract (principal)
CPT/HCPCS: 36415; 80053; 82150; 83690; 85025

== ENCOUNTER 2025-02-06 07:46 | Outpatient (CLI) | payer MEDICAID, SELFPAY | END 2025-02-06 23:59 | disposition home or self-care (01) | LOC: RAD 07:47 | PROVIDERS: Visit Provider Nurse Practitioner Family | DX: R69 Illness, unspecified (principal) ==

== ENCOUNTER 2025-02-19 07:59 | Outpatient (CLI) | payer MEDICAID, SELFPAY ==
--- NOTE | 2025-02-19 08:00 | US_ITS ---
FINAL REPORT TECHNIQUE: Sonographic images of the right upper quadrant were obtained. CLINICAL HISTORY: abdominal pain, intrahepatic duct dilation FINDINGS: PANCREAS: Unremarkable. LIVER: Homogeneous. No focal hepatic lesion. No intrahepatic biliary ductal dilatation. GALLBLADDER: Removed since prior. COMMON DUCT: 5 mm. Normal for age. RIGHT KIDNEY: The right kidney measures 10.8 cm. There is no hydronephrosis, mass, or stone. FREE FLUID: None. IMPRESSION: Interval cholecystectomy. Otherwise unremarkable exam. Reviewed, Interpreted and Dictated by Mirna Nickerson MD Transcribed by Mita Nolen Authenticated and [facility]
== END 2025-02-19 23:59 | disposition home or self-care (01) ==
LOC: RAD 08:00
PROVIDERS: Visit Provider Nurse Practitioner Family
DX: K83.8 Other specified diseases of biliary tract (principal); R10.9 Unspecified abdominal pain; Z90.49 Acquired absence of other specified parts of digestive tract
CPT/HCPCS: 76705

== ENCOUNTER 2025-09-17 09:41 | Outpatient (CLI) | payer MEDICAID, SELFPAY ==
--- OUTSIDE RECORDS SUMMARY | 2025-09-17 09:43 | XMS_ITS | Clinical Summary ---
Author Organization [facility] Address [address] [place] [address] Care Team Providers Care Commission Agent Livestock Name Role Phone Teo Lester MD Primary Care Provider [phone] Allergies No known active allergies Medications cetirizine (zyrTEC) 10 MG tabletIndication s:Seasonal allergic rhinitis, unspecified allergic rhinitis trigger Take 1 tablet by mouth Daily. 30 tablet 5 01/03/2017 Active ibuprofen (ADVIL,MOTRIN) 800 MG tabletIndication s:Otalgia of right ear Take 1 tablet by mouth Every 8 (Eight) Hours As Needed for Mild Pain (1-3). 90 tablet 01/03/2017 Active Active Problems No known active problems Social History Tobacco Use Types Packs/Day Years Used Date Smoking Tobacco: Never Assessed Abuse Screen Answer Date Recorded Unsafe at Home or Work/School Not on file Feels Threatened by Someone? Not on file 07/2023 Does Anyone Keep You from Co ntacting Others or Doint Things Outside the Home? Not on file 06/29/2023 Physical Sign of Abuse Present Not on file 1 Housing Stability Answer Date Recorded Current Living Arrangements Not on file 06/19 Potentially Unsafe Housing Conditions Not on kashmir e 06/29/2023 Family and Community Support Answer Prince e Recorded Help with Day-to-Day Activities Not on file 06/29/2023 Lonely or Isolated Not on file 06/29/2023 Employment Answer Date Recorded Do you want help finding or keeping work or a richard b? Not on file 06/29/2023 Disabilities Answer Date Recorded Concentrating, Remembering, or Making Decisions Difficulty Not on file 06/29/2023 Doing Errands Independently Difficulty Not on fi le 06/29/2023 Education Answer Date Recorded Help with school or training? Not on file Preferred Language Not on file 06/29/2023 Comments Unknown Sex and Gender Information Value Date Recorded Sex Assigned at Not on file Legal Sex Female 10:27 AM EDT Gender Identity Not on file Sexual Orientation Not on file Last Filed Vital Signs Vital Sign Reading Time Taken Comments Blood Pressure - - Pulse 78 01/03/2017 11:00 AM EDT Temperature 37.1 C (98.7 F) 01/03/2017 11:00 AM EDT Respiratory Rate 20 01/03/2017 11:00 AM EDT Oxygen Saturation 98% 01/03/2017 11:00 AM EDT Inhaled Oxygen Concentration - - Weight 78 kg (172 lb) 01/03/2017 11:00 AM EDT Height 167.6 cm (5' 6 ) 01/03/2017 11:00 AM EDT Body Mass Index 27.76 01/03/2017 11:00 AM EDT Plan of Treatment Health Maintenance Due Date Last Done Comments Annual Gynecologic Pelvic an d Breast Exam 1999 HPV VACCINES (1 - 3-dose series) 2014 ANNUAL PHYSICAL 01/03/2017 HEPATITIS C SCREENING 01/03/2017 TDAP/TD VACCINES (1 - Tdap) 2018 INFLUENZA VACCINE 04/19/2025 Pneumococcal Vaccine 0-49 Aged Out No longer eligible based on patient's age to complete this topic Insurance MEDICAID Care Teams Commission Agent Livestock Relationship Specialty Start Date End Date Teo Lester MD [address] [place] [address] [place] [address] PCP - General Internal Medicine 01/03/17
--- OUTSIDE RECORDS SUMMARY | 2025-09-17 09:43 | XMS_ITS | Clinical Summary ---
Author Organization [facility] Address [address] [place] [address] Care Team Providers Care [employer] Name Role Phone Abran Hansen DO Primary Care Provider [phone] Allergies No known active allergies Medications * This document contains information received from the source organization and may not represent a complete record from that organization. No known medications Active Problems No known active problems Immunizations Immunization Administration Dates Next Due HPV, Quadrivalent 01/25/2012,09/29/2011,07/30/20 11 Hep A, Unspecified 03/04/2011 Hep A, ped/adol, 2 dose 03/05/2011 Hep B, Adolescent or Pediatric 06/03/2000,1999,1999 Influenza, injectable, quadr ivalent, preservative free 08/16/2023 Influenza, live, intranasal 07/05/2011 Influenza, seasonal, injectable 07/26/2013,07/25 MMR 04/08/2023,05/07/2004,01/10/2001 Meningococcal MCV4, Unspecified 03/05/2011 PPD Skin Test (TB Skin Test) 04/06/2023 Pfizer-BioNTech COVID-19 Biv alent (Mosher Cap) 12+ years (grisel-sucrose) 03/31/2023 Tdap 04/04/2023,03/05/2011 Varicella 04/08/2023,08/04/2011,09/06/2000 Social History Tobacco Use Types Packs/Day Years Used Date Smoking Tobacco: Never Passive Smoke Exposure: Yes Smokeless Tobacco: Never Tobacco Cessation:Counseling Given: Not Answered PHQ-2 Answer Date Recorded Patient Health Questionnaire-2 Score 0 10/20/2023 Comments Unknown Sex and Gender Information Value Date Recorded Sex Assigned at Female 04/04/2023 5:01 PM EDT Legal Sex Female 6:07 PM EDT Gender Identity Female 04/04/2023 5:01 PM EDT Sexual Orientation Not on file Last Filed Vital Signs Vital Sign Reading Time Taken Comments Blood Pressure 113/79 10/25/2023 2:44 PM EST Pulse 97 10/20/2023 1:28 PM EST Temperature 37.1 C (98.7 F) 10/25/2023 2:44 PM EST Respiratory Rate - - Oxygen Saturation - - Inhaled Oxygen Concentration - - Weight 93 kg (205 lb) 10/25/2023 2:44 PM EST Height 172.7 cm (5' 8 ) 10/25/2023 2:44 PM EST Body Mass Index 31.17 10/25/2023 2:44 PM EST Plan of Treatment Health Maintenance Due Date Last Done Comments [facility]-HIV Screening 1999 [facility]-Hepatitis C Screening 1999 [facility]-Infant/Child/Adol SDOH Screenings 1999 [facility]-Hepatitis A Vaccines (2 of 2 - 2-dose series) 09/04/2011 03/05/2011, 03/04/2011 [facility]- SDOH Screenings 2017 [facility]-Adult SDOH Screenings 2017 [facility]-Pap Smear 2020 [facility]-Depression Screening 10/20/2024 10/20/2023 [id number] Vaccine (2 season) 2025 03/31/2023 [facility]-Influenza Vaccine (#1) 05/20/202508/16, 07/26/2013, 07/25/2012, Additional history exists [facility]-DTaP,Tdap,and Td Vaccines (3 - Td or Tdap) 04/04/2033 04/04/2023, 03/05/2011 [facility]-Zoster Vaccines (1 of 2) 2049 04/08/2023, 08/04/2011, 09/06/2000 [facility]-Hepatitis B Vaccines Completed 000, 01/01/2000, 1999 HPV Vaccines Completed 01/25/2012, 09/19, 07/30/2011 [facility]-Varicella Vaccines Completed 3, 08/04/2011, 09/06/2000 [facility]-Obesity Intervention Completed 10/25/2023, 09/2023 [facility]-HIB Vaccines Aged Out No longer e ligible based on patient's age to complete this topic [facility]-IPV Vaccines Aged Out No longer e ligible based on patient's age to complete this topic [facility]-Pneumococcal Vaccine: Pediatrics (0 to 5 Years) and At-Risk Patients (6 to 49 Years) Aged Out No longer eligible based on patient's age to complete this topic [facility]-Rotavirus Vaccines Aged Out No lo nger eligible based on patient's age to complete this topic Insurance [employer] [address] [facility] [place] [id number] Care Teams [employer] Relationship Specialty Start Date End Date Abran Hansen DO [address] [place] [address] [phone] (work) [facility] - General 01/30/21
[2025-09-17 10:30] LABS: Hematocrit 38.7 % (37.0-47.0); Hemoglobin 13.3 g/dL (12.2-16.2); Immature Granulocytes % 0.4 %; Mean Corpuscular HGB Conc 34.4 g/dL (31.8-35.4); Mean Corpuscular Hemoglobin 30.2 pg (27.0-31.2); Mean Corpuscular Volume 88.0 fl (81-99); Nucleated Red Blood Cells % 0 %; Platelet Count 249 K/mm3 (142-424); Red Blood Count 4.40 M/mm3 (4.20-5.40); Red Cell Distribution Width-SD 39.7 fL; White Blood Count 6.9 K/mm3 (4.8-10.8)
[2025-09-17 11:53] LABS: Hepatitis C Ab Qual. W/ RFX NEGATIVE (Negative)
[2025-09-17 19:51] LABS: RPR W/RFX Titers Nonreactive (Nonreactive)
[2025-09-18 06:03] LABS: Hepatitis B Surface Antigen Negative (Negative)
[2025-09-18 06:04] LABS: Rubella Antibodies, IgG 5.85 index (Immune >0.99)
== END 2025-09-17 23:59 | disposition home or self-care (01) ==
LOC: LAB 09:41
PROVIDERS: Visit Provider Obstetrics & Gynecology
DX: O98.811 Other maternal infectious and parasitic diseases complicating pregnancy, first trimester (principal); B37.9 Candidiasis, unspecified; R10.20 Pelvic and perineal pain unspecified side; Z3A.00 Weeks of gestation of pregnancy not specified; O99.891 Other specified diseases and conditions complicating pregnancy
CPT/HCPCS: 36415; 85025; 86592; 86762; 86787; 86803; 86850; 87086; 87340; 87389